=== PATIENT | female | born 1975 | race Caucasian/White ===

== ENCOUNTER 2023-07-01 01:20 | Inpatient (IN) | payer MEDICARE, MEDICAID, SELFPAY ==
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
--- NOTE | ~2023-07-01 | XR_ITS ---
EXAMINATION: XR SHOULDER, LEFT CLINICAL INFORMATION: Left shoulder trauma COMPARISON: None available. TECHNIQUE: AP external rotation, Grashey, scapular Y views of the left shoulder. FINDINGS: The bones are intact. No fracture. Glenohumeral and acromioclavicular alignment is anatomic with normal joint space. No abnormal soft tissue calcifications. XR/XR shoulder LT min 2V IMPRESSION: No acute bony abnormality.
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
--- NOTE | ~2023-07-01 | CT_ITS ---
EXAMINATION: CT head/brain wo IV con, CT cervical spine wo IV con INDICATION INFORMATION: Reason for Exam Head trauma COMPARISON: None TECHNIQUE: Separate noncontrast CT examinations of the head and cervical spine were performed. Coronal and sagittal images were created for each examination at the technologist workstation. This CT examination was performed using dose optimization techniques as appropriate, variously including the following: *Automated exposure control *Adjustment of mA and/or kV according to patient size (this includes techniques or standardized protocols for targeted exams where dose is matched to indication/reason for exam; i.e. extremities or head) *Use of iterative reconstruction technique DLP: 1398.6 mGy-cm FINDINGS: Head: No acute osseous or soft tissue abnormality. The mastoid air cells and visualized portions of the paranasal sinuses are well aerated. There is no evidence of acute intracranial hemorrhage or territorial infarction. No abnormal mass effect or midline shift is seen. Liz to white matter differentiation is well preserved. No extra-axial fluid collections are identified. No hydrocephalus. No significant volume loss. There is no abnormal attenuation within the brain parenchyma. Cervical spine: CT of the cervical spine is motion degraded which limits sensitivity for nondisplaced fractures. There is no evidence of acute cervical spine fracture. Vertebral bodies remain normal in height. Cervical straightening. No pre- or paravertebral soft tissue abnormality is identified. Visualized portions of the lung apices are unremarkable. The thyroid gland is unremarkable. CT/CT cervical spine wo IV con IMPRESSION: 1. No acute intracranial abnormality. 2. Within the limitations of motion artifact, no evidence of acute fracture or traumatic malalignment of the cervical spine.
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
--- OUTSIDE RECORDS SUMMARY | 2023-07-01 01:24 | XMS_ITS | Continuity of Care Document ---
Author Name Unknown Organization [facility] Address [address] [place] [id number]- Care Team Providers Care Mobile Home Servicer Name Role Phone PCP INFO, UNAVAILABLE Primary Care Physician Elenita vailable Encounter [facility] Date(s): 01/07/23 - 01/08/[address] [place] [address]- Encounter Diagnosis Fall(Discharge Diagnosis) - 01/08/23 Closed head injury(Discharge Diagnosis) - 01/08/23 Discharge Disposition: Home/Self Care Attending Physician: ANAND MARTINEZ Admitting Physician: ANAND MARTINEZ Referring Physician: ANAND MARTINEZ Allergies, Adverse Reactions, Alerts Substance Reaction Severity Status lithium SI Suicidal thoughts Active penicillin rash Rash Active gabapentin SI Suicidal thoughts Active sulfadoxine GI upset Gastrointestinal upset Active Latex rash Rash Active Tape rash Rash Active Haldol Suicidal thoughts Suicidal thoughts Active Effexor depression Depression Active Cipro SI Suicidal thoughts Active Depakote seizure Seizure Active Dilaudid chest pain Chest pain Active Wellbutrin seizure Seizure Active Chantix Seizure Seizure Active anabolic steroids SI Suicidal thoughts Active Rexulti SI Suicidal thoughts Active Medications atorvastatin 10 mg oral tablet 10 mg = 1 tab, Oral, Daily, # 90 tab, 0 Refill(s) Start Date: 01/06/23 Status: Ordered azelastine nasal 0.1% spray 1 spray, Nasal, BID, 0 Refill(s), Partial fill upon patient request if the prescription is for a schedule II opioid drug. Start Date: 01/06/23 Status: Ordered Breo Ellipta 100 mcg-25 mcg inhalation powder 1 puff, Inhalation Oral, Daily, 0 Refill(s), Partial fill upon patient request if the prescription is for a schedule II opioid drug. Start Date: 01/06/23 Status: Ordered busPIRone 5 mg oral tablet 5 mg = 1 tab, Oral, TID, # 90 tab, 0 Refill(s) Start Date: 01/06/23 Status: Ordered celecoxib 200 mg oral capsule 200 mg = 1 cap, Oral, BID, 0 Refill(s) Start Date: 01/06/23 Status: Ordered clonazePAM 1 mg oral tablet 1 mg = 1 tab, Oral, BID, 0 Refill(s) Start Date: 01/06/23 Status: Ordered ferrous gluconate 324 mg (37.5 mg elemental iron) oral tablet See Instructions, take one tab PO every other day, 0 Refill(s) Start Date: 01/06/23 Status: Ordered FLUoxetine 20 mg oral capsule 80 mg = 4 cap, Oral, Daily, 0 Refill(s) Start Date: 01/06/23 Status: Ordered hydrOXYzine hydrochloride 50 mg oral tablet 50 mg = 1 tab, Oral, TID, PRN PRN for anxiety, # 40 tab, 0 Refill(s) Start Date: 01/06/23 Status: Ordered hydrOXYzine pamoate 100 mg oral capsule See Instructions, PRN PRN Sleep, 1 cap PO at bedtime as needed for sleep, 0 Refill(s) Start Date: 01/06/23 Status: Ordered levothyroxine 75 mcg (0.075 mg) oral tablet 75 mcg = 1 tab, Oral, Daily, # 90 tab, 0 Refill(s) Start Date: 01/06/23 Status: Ordered OLANZapine 10 mg oral tablet 10 mg = 1 tab, Oral, BID, # 30 tab, 0 Refill(s) Start Date: 01/06/23 Status: Ordered pantoprazole 40 mg oral enteric coated tablet 40 mg = 1 tab, Oral, BID, # 30 tab, 0 Refill(s) Start Date: 01/06/23 Status: Ordered prazosin 5 mg oral capsule 5 mg = 1 cap, Oral, Daily, bedtime, 0 Refill(s) Start Date: 01/06/23 Status: Ordered topiramate 100 mg oral tablet 100 mg = 1 tab, Oral, BID, # 180 tab, 0 Refill(s) Start Date: 01/06/23 Status: Ordered traZODone 100 mg oral tablet 3 tabs, Oral, bedtime, 0 Refill(s) Start Date: 01/06/23 Status: Ordered Ubrelvy 100 mg oral tablet 100 mg = 1 tab, Daily, PRN PRN Migraine, 0 Refill(s) Start Date: 01/06/23 Status: Ordered Ventolin HFA 90 mcg/inh inhalation aerosol 2 puff, Inhalation Oral, Q6hr, PRN PRN for wheezing, 0 Refill(s), Partial fill upon patient requestif the prescription is for a schedule II opioid drug. Start Date: 01/06/23 Status: Ordered Problem List Condition Confirmation Course Effective Dates Status H ealth Status Informant Anemia Confirmed Active Asthma 1 Confirmed Active patient Bipolar Confirmed Active patient Falls Confirmed Active GERD (gastroesophageal reflux disease) Confirmed Active Hyperlipidemia Confirmed Active Hypothyroidism Confirmed Active Obesity Confirmed Active Post traumatic stress disorder Confirmed Active patient Traumatic brain injury Confirmed Active patient 1exercise induced Vital Signs Most recent to oldest [Reference Range]: 1 2 Blood Pressure [90-140/60-90 mmHg] 113/7 7mmHg (01/08/23 3:46 AM) 111/75mmHg (01/08/23 12:13 AM) Dosing BMI 43 (01/08/23 3:49 AM) 43 (01/08/23 12:13 AM) Dosing BSA-Mosteller 2.24 m2 (01/08/23 3:49 AM) 2.24 m2 (01/08/23 12:13 AM) Dosing Weight 112 kg (01/08/23 3:49 AM) 112 kg (01/08/23 12:13 AM) Heart Rate [60-100 bpm] 81 bpm (01/08/23 3:46 AM) 84 bpm (01/08/23 12:13 AM) Height 162 cm (01/08/23 3:49 AM) 162 cm (01/08/23 12:13 AM) Mean Arterial Pressure 87 mmHg (01/08/23 12:13 AM) Respiratory Rate [14-20 breaths/min] 18 breaths/min (01/08/23 3:46 AM) 18 breaths/min (01/08/23 12:13 AM) SpO2/Pulse Oximetry [85-100 %] 98 % (01/08/23 3:46 AM) 96 % (01/08/23 12:13 AM) Temperature Temporal [36.3-38 degC] 36.7 degC (01/08/23 12:13 AM) Social History Social History Type Response Smoking Status Former smoker entered on: 01/07/23 Sex Hospital Discharge Instructions Follow Up Care 01/07/2023 23:39:12 With:PCP INFO, UNAVAILABLE, Other Address: When:1-2 days Comments:You are seen in the emergency room today??after a fall and head injury.You can continue taking Tylenol as needed for pain.Please return to the emergency room for any new or worsening symptoms including confusion, persistent vomiting,??severe pain. Patient Care team information Care Team Personnel Name: PCP INFO, UNAVAILABLE Position: RO No Access Member Role: Primary Care Physician Name: Marzena Hernandez Position: ED Registration/Bed Control CPOE Member Role: ED Registration/Bed Control Name: Prisca Max RN Position: ED RN SPC R3 Member Role: ED Nurse Name: Shirley Sanford MD Position: ED Physician R3 Member Role: ED Physician Address: Address: [address] [place] [address] Name: ANAND MARTINEZ Position: ED MLP PA R3 Member Role: Attending Physician Address: Address: [address] [place] [address]
--- OUTSIDE RECORDS SUMMARY | 2023-07-01 01:24 | XMS_ITS | Patient Health Record ---
Author Name Unknown Organization [facility] Address [address] [place] [address] Care Team Providers Care Sheet Rock Finisher Name Role Phone Guido Acuna Primary Care Provider Allan Edge Unavailable [phone] ALLERGIES Allergen (clinical drug ingredient) Drug/Non Drug Allergy documented on EMR Reaction Allergy Type Onset Date Status amoxicillin Amoxicillin tabs (uncoded) hives Allergy Active hydromorphone Dilaudid (uncoded) chest pain Allergy Active gabapentin gabapentin caps (uncoded) suicidal ideation Allergy Active Substance with penicillin structure and antibacterial mechanism of action (substance) penicillins (uncoded) rash Allergy Active piroxicam piroxicam caps (uncoded) swelling Allergy Active Prednisone tabs (uncoded) Unknown Allergy Active lansoprazole prevacid cpdr (uncoded) GI upset Allergy Active carbamazepine Tegretol tabs (uncoded) rash Allergy Active oxcarbazepine Trileptal tabs (uncoded) Tremor Allergy Active bupropion wellbutrin sr tb12 (uncoded) seizures Allergy Active sertraline Zoloft (uncoded) GI upset Allergy Ac tive paliperidone Invega Unknown Drug Allergy Acti ve lamotrigine Lamictal Unknown Drug Allergy Activ e REASON FOR REFERRAL No Information MEDICATIONS Medication SIG (Take, Route, Frequency, Duration) Notes Start Date End Date Status Naproxen 500 MG 1 tablet with food o r milk as needed Orally every 12 hrs Active Colace 100 MG 1 capsule as needed Orally Once a day for 30 day(s) Active Omeprazole 40 MG 1 capsule Orally BID Active Prazosin HCl 5 MG 1 capsule at bedtime Orally Once a day for 30 day(s) Active Citalopram Hydrobromide 10 MG/5ML 5 ml Orally Once a day for 30 day(s) Active Levothyroxine Sodium 75 MCG 1 tablet on an empty stomach in the morning Orally Once a day Active clonazePAM 0.5 MG 1 tablet at bedtime Orally Three times a day Active Topiramate 200 MG 1 tablet Orally Twic e a day Active Abilify 15 MG 1 tablet Orally Once a day for 30 day(s) Active Citalopram Hydrobromide 20 MG 1 tablet Orally Once a day A ctive traZODone HCl 100 MG 2 tablet at bedtime Orally Once a day Active Propranolol HCl ER 80 MG 1 capsule Orall y Once a day for 30 day(s) Active ProAir HFA 108 (90 Base) MCG/ACT 2 puffs as needed Inhalation every 6 hrs Active ZyPREXA 10 MG 1 tablet Orally BID Active Advair Diskus 250-50 MCG/DOSE 1 puff Inhalation Twice a day Active RisperDAL Consta 50 MG Intramuscular Active ZyPREXA 15 MG 1 tablet Orally Once a day for 30 day(s) Active hydrOXYzine HCl 50 MG 1 tablet as needed Orally 4 times a day Active oxyBUTYnin Chloride ER 15 MG 1 tablet Orally Once a day A ctive Acetaminophen 325 MG 2 capsule as needed Orally every 6 hrs Active SOCIAL HISTORY Tobacco Use: Social History Observation Description Date Details (start date - stop date) Former Smoker NA - NA Sex Assigned At : Social History Observation Description Sex Assigned At Unknown Tobacco Use/Smoking Question Answer Notes Are you a former smoker Tobacco use other than smoking: Question Answer Notes Are you an other tobacco user? No PROBLEMS Problem Type ICD Code Onset Dates Problem Status W/U Status Risk SNOMED Code Notes Problem Seizure disorder (G40.909) Active confirmed Seizure disorde r (479228843) Problem Vertigo (R42) Active confirmed Vertigo (135075217) Problem Dizziness (R42) Active confirmed Dizzin ess (532773809) Problem Post concussive syndrome (F07.81) Active confirmed Postconcussion syndrome (06652566) Problem Bipolar disorder (F31.9) Active confirmed Bipolar disorde r (44783479) Problem Postural instability (R29.3) Active confirmed Abnormal postur e (18539645) Problem Bipolar 1 disorder (F31.9) Active confirmed Bipolar 1 disorder (928360651) Problem Borderline personality disorder in adult (F60.3) Active confirmed Borderline personality disorder (44770876) Problem Conversion disorder (F44.9) Active confirmed Conversion disorder (270565693) PLAN OF TREATMENT No Information Insurance Providers Payer Name Payer Address Payer Phone Subscriber Number Group Number Insured Name Patient Relationship to Insured Coverage Start Date Coverage End Date MEDICARE [address] [place], [place] [id number] [employer] Self - patient is the insured [employer] [address] [place] [address] [id number] [employer] Self - patient is the insured MEDICAL (GENERAL) HISTORY Medical History History ICD Code Vertigo Bipolar disorder Seizures (? Nonepileptic) BPD Surgical History Surgery Date(Month/Year) 2 hand surgeries Gal Bladder Tibal Ligation Hospitalization History Reason Date(Month/Year) Falls, vertigo 03/2017 [facility]
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
--- OUTSIDE RECORDS SUMMARY | 2023-07-01 01:25 | XMS_ITS | Continuity of Care Document ---
Author Name Unknown Organization [facility] Address [address] [place] [place] [id number]- Care Team Providers Care Product Management Specialist Name Role Phone PCP INFO, UNAVAILABLE Primary Care Physician Elenita vailable Encounter [facility] Date(s): 01/05/23 - 01/07/[address] [address]- Encounter Diagnosis Suicidal ideation(Discharge Diagnosis) - 01/07/23 Discharge Disposition: Xfer To Psych Unit - Other Hosp Attending Physician: ZULMA RIOS MD Admitting Physician: ZULMA RIOS MD Referring Physician: ZULMA RIOS MD Allergies, Adverse Reactions, Alerts Substance Reaction [...] List Condition Confirmation Course Effective Dates Status Health [facility] Informant Bipolar Confirmed Active patient Results Laboratory List Name Date Acetaminophen Level 01/05/23 Basic Metabolic Panel 01/05/23 Complete Blood Count With Auto Different ial 01/05/23 Ethanol Level 01/05/23 Salicylate Level 01/05/23 Amphetamine Screen Urine 01/05/23 Barbiturate Screen Urine 01/05/23 Benzodiazepine Screen Urine 01/05/23 Cannabinoid Screen Urine 01/05/23 Cocaine Screen Urine 01/05/23 Coronavirus SARS-CoV-2 (COVID-19) PCR Opiate Screen Urine 01/05/23 HCG Urine Qual POC 01/05/23 Most recent to oldest [Reference Range]: 1 COVID-19 PCR [Negative] Negative (01/05/23 7:12 PM) HCG By Nursing Negative (01/05/23 9:17 PM) eGFR CKD-EPI [>=90 mL/min/1.73m2] 61 mL/ min/1.73m2 *LOW* (01/05/23 8:59 PM) Imm Gran Abs 0 10^3/uL *NA* (01/05/23 8:59 PM) NRBC Auto Rel 0 % *NA* (01/05/23 8:59 PM) Imm Gran Rel 1 % *NA* (01/05/23 8:59 PM) RDW-SD 52 *NA* (01/05/23 8:59 PM) RDW-CV [12-14 %] 18 % *HI* (01/05/23 8:59 PM) NRBC Auto Abs 0.00 x10(3)/mcL *NA* (01/05/23 8:59 PM) Amph U Scrn Rslt [Negative] Negative (01/05/23 7:12 PM) AGAP [8.0-15.0] 7.0 *LOW* (01/05/23 8:59 PM) BUN/Creat [8-27] 15 (01/05/23 8:59 PM) Sodium Lvl [134-144 mEq/L] 137 mEq/L (01/05/23 8:59 PM) CO2 [20-32 mEq/L] 24 mEq/L (01/05/23 8:59 PM) Ethanol Lvl [0-9 mg/dL] <10 mg/dL (01/05/23 8:59 PM) Glucose Level [65-99 mg/dL] 97 mg/dL (01/05/23 8:59 PM) Potassium Lvl [3.6-5.6 mEq/L] 3.6 mEq/L (01/05/23 8:59 PM) BUN [5-26 mg/dL] 17 mg/dL (01/05/23 8:59 PM) Calcium Lvl [8.3-10.0 mg/dL] 9.1 mg/dL (01/05/23 8:59 PM) Benzo U Scrn Rslt [Negative] Negative (01/05/23 7:12 PM) Marcelle U Scrn Rslt [Negative] Negative (01/05/23 7:12 PM) Cocaine U Scrn Rslt [Negative] Negative (01/05/23 7:12 PM) Creatinine Lvl [0.50-1.50 mg/dL] 1.12 mg /dL (01/05/23 8:59 PM) Acetaminph Lvl [0-25 mcg/mL] <5 mcg/mL (01/05/23 8:59 PM) Chloride Lvl [96-109 mEq/L] 106 mEq/L (01/05/23 8:59 PM) Salicylate [2.8-20.0 mcg/mL] <0.3 mcg/mL *LOW* (01/05/23 8:59 PM) Opiate U Scrn Rslt [Negative] Negative (01/05/23 7:12 PM) THC U Scrn Rslt [Negative] Presumptive P ositive *ABN* (01/05/23 7:12 PM) Osmolality Calc [275-305 mmol/kg] 285 mm ol/kg (01/05/23 8:59 PM) WBC [3.9-11.0 x10(3)/mcL] 7.7 x10(3)/mcL (01/05/23 8:59 PM) RBC [3.70-5.10 million/mcL] 4.18 million /mcL (01/05/23 8:59 PM) Hgb [11.5-12.5 g/dL] 10.1 g/dL *LOW* (01/05/23 8:59 PM) Hct [34.0-44.0 %] 33.4 % *LOW* (01/05/23 8:59 PM) MCV [80-100 fL] 80 fL (01/05/23 8:59 PM) MPV [7.0-11.0 fL] 9.2 fL (01/05/23 8:59 PM) MCH [27-33 pg] 24 pg *LOW* (01/05/23 8:59 PM) MCHC [31-36 g/dL] 30 g/dL *LOW* (01/05/23 8:59 PM) RDW [11.4-14.4 %] 52.3 % *HI* (01/05/23 8:59 PM) Platelet Count [150-450 x10(3)/mcL] 206 x10(3)/mcL (01/05/23 8:59 PM) Neutrophil Rel [42-76 %] 58 % (01/05/23 8:59 PM) Lymphocyte Rel [27-47 %] 32 % (01/05/23 8:59 PM) Lymphocyte Abs [1.1-5.9 x10(3)/mcL] 2.5 x10(3)/mcL (01/05/23 8:59 PM) Neutrophil Abs [1.8-7.0 x10(3)/mcL] 4.5 x10(3)/mcL (01/05/23 8:59 PM) Monocyte Rel [4-13 %] 8 % (01/05/23 8:59 PM) Monocyte Abs [0.1-0.8 x10(3)/mcL] 0.6 x1 0(3)/mcL (01/05/23 8:59 PM) Eosinophil Rel [0-7 %] 2 % (01/05/23 8:59 PM) Eosinophil Abs [0.00-0.40 x10(3)/mcL] 0. 12 x10(3)/mcL (01/05/23 8:59 PM) Basophil Rel [0-3 %] 0 % (01/05/23 8:59 PM) Basophil Abs [0.00-0.20 x10(3)/mcL] 0.02 x10(3)/mcL (01/05/23 8:59 PM) Vital Signs Most recent to oldest [Reference Range]: 1 2 3 Blood Pressure [90-140/60-90 mmHg] 104/67mmHg (01/07/23 3:22 PM) 116/68mmHg (01/07/23 7:44 AM) 118/75mmHg (01/07/23 6:07 AM) Blood Pressure Location Left (01/07/23 3:22 PM) Right, Lower, Arm (01/05/23 5:03 PM) Blood Pressure Method Automatic (01/07/23 3:22 PM) Automatic (01/05/23 5:03 PM) Dosing BMI 276 (01/07/23 6:15 PM) 276 (01/05/23 5:03 PM) Dosing BSA-Mosteller 1.42 m2 (01/07/23 6:15 PM) 1.42 m2 (01/05/23 5:03 PM) Dosing Weight 113 kg (01/07/23 6:15 PM) 113 kg (01/05/23 5:03 PM) Heart Rate [60-100 bpm] 89 bpm (01/07/23 3:22 PM) 103 bpm *HI* (01/07/23 7:44 AM) 80 bpm (01/07/23 1:02 AM) Height 64 cm (01/07/23 6:15 PM) 64 cm (01/05/23 5:03 PM) Mean Arterial Pressure 79 mmHg (01/07/23 3:22 PM) 84 mmHg (01/07/23 7:44 AM) 89 mmHg (01/07/23 6:07 AM) Pulse/HR Method Monitor (01/07/23 3:22 PM) Monitor (01/05/23 5:03 PM) Respiratory Rate [14-20 breaths/min] 18 breaths/min (01/07/23 3:22 PM) 21 breaths/min *HI* (01/07/23 7:44 AM) 20 breaths/min (01/07/23 1:02 AM) SpO2/Pulse Oximetry [85-100 %] 96 % (01/07/23 3:22 PM) 99 % (01/07/23 7:44 AM) 100 % (01/07/23 6:07 AM) Temperature Oral [35.8-37.3 degC] 36.4 degC (01/07/23 3:22 PM) 36.6 degC (01/07/23 7:44 AM) 36.1 degC (01/07/23 1:02 AM) Vital Signs Assessed No (01/05/23 8:58 PM) Social History Social History Type Response Smoking Status Former smoker entered on: 01/07/23 Sex Patient Care team information Care Team Personnel Name: PCP INFO, UNAVAILABLE Position: RO No Access Member Role: Primary Care Physician Name: Guido Aguilar MD Position: ED Physician R3 Member Role: ED Physician Address: Address: [address] [place] [address]- Name: Ashley Villegas CLA Position: ED Registration/Bed Control CPOE Name: Saritha Curtis RN Position: ED RN SPC R3 Member Role: ED Nurse Name: Jeff Keller MD Position: ED Physician R3 Member Role: ED Physician Address: Address: [address] [place] [address]- Name: SHELBY MILNER Position: ED RN SPC R3 Member Role: ED Nurse
--- OUTSIDE RECORDS SUMMARY | 2023-07-01 01:25 | XMS_ITS | Summary of Care ---
Author Name Unknown Organization [facility] Address [address] [place] [address]- Encounter 03/15/18 - 03/20/18 [facility] [address] [place] [address]- [phone] Discharge Disposition: Against medical advice, with follow-up Attending Physician: Anny Rosas MD Vital Signs Most recent to oldest [Reference Range]: 1 2 3 Temperature Oral F [96.4-99.1 DegF] 97.5 DegF (03/20/18 4:49 AM) 98.3 DegF (03/19/18 7:27 PM) 98.1 DegF (03/19/18 1:50 PM) Peripheral Pulse Rate [60-100 bpm] 70 bpm (03/20/18 3:07 PM) 70 bpm (03/20/18 4:49 AM) 68 bpm (03/19/18 7:27 PM) Respiratory Rate [14-20 br/min] 18 br/min (03/20/18 3:07 PM) 18 br/min (03/20/18 4:49 AM) 16 br/min (03/19/18 7:27 PM) Blood Pressure [90-140/60-90 mmHg] 120/82mmHg (03/19/18 7:27 PM) Systolic Blood Pressure [90-140 mmHg] 112 mmHg (03/20/18 3:07 PM) 112 mmHg (03/20/18 4:49 AM) Diastolic Blood Pressure [60-90 mmHg] 72 mmHg (03/20/18 3:07 PM) 72 mmHg (03/20/18 4:49 AM) Temperature Oral [35.8-37.3 DegC] 36.4 DegC (03/20/18 4:49 AM) 36.7 DegC (03/19/18 1:50 PM) 36.9 DegC (03/19/18 6:26 AM) Problem List Condition Effective Dates Status Health Status Inform ant ADD - Attention deficit disorder(Confirmed) Active Anxiety(Confirmed) Active Balance impairment(Confirmed) Active Bipolar disorder(Confirmed) Active Chronic constipation(Confirmed) Active COPD - Chronic obstructive p ulmonary disease(Confirmed) Active Gait abnormality(Confirmed) Active GERD - Gastro-esophageal ref lux disease(Confirmed) Active HTN - Hypertension(Confirmed) Active Hyperlipidemia(Confirmed) Active Impaired mobility(Confirmed) Active Migraine(Confirmed) Active Non cardiac chest pain(Confirmed) Active Pancreatitis(Confirmed) Active Suicide risk(Confirmed) Active urinary urgency(Confirmed) Active Vertigo(Confirmed) Active Allergies, Adverse Reactions, Alerts Substance Reaction Severity Status Toradol per nurse Active ciprofloxacin Active meperidine Active tetracycline Active clindamycin Active erythromycin Active morphine Active piroxicam Active sertraline Active venlafaxine Active penicillins Active sulfamethoxazole-trimethoprim SS Active buPROPion Active predniSONE Active pregabalin Active varenicline Active Compazine Active Invega Active Chantix Active cloZAPine Active OXcarbazepine Active HYDROcodone Active carBAMazepine Active HYDROmorphone Hydrochloride Active Medications Advair Diskus 250 mcg-50 mcg inhalation powder 1 puff, Powder, INH, BID RT, 60 EA, 0 Refill(s) Start Date: 03/15/18 Status: Ordered albuterol CFC free 90 mcg/inh inhalation aerosol 0 Refill(s) Start Date: 03/16/18 Status: Ordered albuterol CFC free 90 mcg/inh inhalation aerosol 2 puff, Aerosol, INH, q4hr RT PRN, 0 Refill(s), wheezing Start Date: 03/15/18 Status: Ordered CeleXA 20 mg oral tablet 20 mg = 1 tab, Tab, Oral, Daily, 30 tab, 0 Refill(s) Start Date: 03/15/18 Status: Ordered Colace 100 mg oral capsule 100 mg, Cap, Oral, BID, 0 Refill(s) Start Date: 03/16/18 Status: Ordered Fioricet 0 Refill(s) Start Date: 03/16/18 Status: Ordered Flonase 50 mcg/inh nasal spray 1 spray, [place]-Nasal, Nasal, Daily, 16 gm, 0 Refill(s) Start Date: 03/15/18 Status: Ordered Imitrex 50 mg oral tablet 50 mg = 1 tab, Tab, Oral, Daily PRN, 18 tab, 0 Refill(s), may repeat dose after 2 hours up to a maximum of 200 mg in 24 hours, Headache Start Date: 03/15/18 Status: Ordered KlonoPIN 0.5 mg oral tablet 0.5 mg = 1 tab, Tab, Oral, BID, 0 Refill(s) Start Date: 03/15/18 Status: Ordered melatonin 3 mg oral tablet 3 mg = 1 tab, Tab, Oral, QHS, 60 tab, 0 Refill(s) Start Date: 03/15/18 Status: Ordered naproxen 500 mg oral tablet 500 mg = 1 tab, Tab, Oral, BID, 60 tab, 0 Refill(s) Start Date: 03/15/18 Status: Ordered OLANZapine 5 mg oral tablet 5 mg = 1 tab, Tab, Oral, QHS, 30 tab, 0 Refill(s) Start Date: 03/15/18 Status: Ordered oxybutynin 15 mg/24 hr oral tablet, extended release 15 mg, 1 tab, Oral, Daily, 0 Refill(s) Start Date: 03/15/18 Status: Ordered PriLOSEC OTC 20 mg oral delayed release tablet 40 mg = 2 tab, Tab-DR, Oral, BIDAC, 60 tab, 0 Refill(s) Start Date: 03/15/18 Status: Ordered QUEtiapine 200 mg oral tablet, extended release 200 mg, 1 tab, Tab-ER, Oral, qPM, 30 tab, 0 Refill(s) Start Date: 03/15/18 Status: Ordered risperiDONE 4 mg oral tablet 4 mg = 1 tab, Tab, Oral, QHS, 60 tab, 0 Refill(s) Start Date: 03/15/18 Status: Ordered risperiDONE 50 mg/2 weeks intramuscular injection, extended release 50 mg, IM, q2wk, 0 Refill(s) Start Date: 03/15/18 Status: Ordered Synthroid 75 mcg (0.075 mg) oral tablet 75 mcg = 1 tab, Tab, Oral, Daily, 30 tab, 0 Refill(s) Start Date: 03/15/18 Status: Ordered topiramate 100 mg oral tablet 100 mg = 1 tab, Tab, Oral, Daily, 30 tab, 0 Refill(s) Start Date: 03/15/18 Status: Ordered Zofran 4 mg oral tablet 4 mg = 1 tab, Tab, Oral, q8hr PRN, 3 tab, 0 Refill(s), Nausea or vomiting Start Date: 03/15/18 Status: Ordered Results LABORATORY Most recent to oldest [Reference Range]: 1 2 3 White Blood Cell Count - QST [3.8-10.8 x10(3)/mcL] 6.1 x10(3)/mcL *NA* (03/16/18 6:00 AM) Red Blood Cell Count - QST [3.80-5.10 x10(6)/mcL] 4.39 x10(6)/mcL *NA* (03/16/18 6:00 AM) Hemoglobin - QST [11.7-15.5 g/dL] 11.2 g/dL *LOW* (03/16/18 6:00 AM) Hematocrit - QST [35.0-45.0 %] 35.7 % *NA* (03/16/18 6:00 AM) MCV - QST [80.0-100.0 fL] 81.3 fL *NA* (03/16/18 6:00 AM) MCH - QST [27.0-33.0 pg] 25.5 pg *LOW* (03/16/18 6:00 AM) MCHC - QST [32.0-36.0 g/dL] 31.4 g/dL *LOW* (03/16/18 6:00 AM) RDW - QST [11.0-15.0 %] 14.3 % *NA* (03/16/18 6:00 AM) Platelet Count - QST [140-40 0 x10(3)/mcL] 216 x10(3)/mcL *NA* (03/16/18 6:00 AM) MPV - QST [7.5-12.5 fL] 11.1 fL *NA* (03/16/18 6:00 AM) Absolute Neutrophils - QST [3917-0582 cells/mcL] 3630 cells/mcL *NA* (03/16/18 6:00 AM) Absolute Lymphocytes - QST [850-3900 cells/mcL] 1690 cells/mcL *NA* (03/16/18 6:00 AM) Absolute Monocytes - QST [200-950 cells/mcL] 519 cells/mcL *NA* (03/16/18 6:00 AM) Absolute Eosinophils - QST [15-500 cells/mcL] 220 cells/mcL *NA* (03/16/18 6:00 AM) Absolute Basophils - QST [0-200 cells/mcL] 43 cells/mcL *NA* (03/16/18 6:00 AM) Neutrophils - QST 59.5 % *NA* (03/16/18 6:00 AM) Monocytes - QST 8.5 % *NA* (03/16/18 6:00 AM) Eosinophils - QST 3.6 % *NA* (03/16/18 6:00 AM) Basophils - QST 0.7 % 1 *NA* (03/16/18 6:00 AM) Lymphocytes - QST 27.7 % *NA* (03/16/18 6:00 AM) Estimated Creatinine Clearance 68.54 mL/min (03/17/18 3:30 PM) 68.54 mL/min (03/17/18 3:17 PM) 69.24 mL/min (03/16/18 12:16 PM) Creatinine Level 0.93 mg/dL (03/16/18 6:00 AM) Sodium - QST [135-146 mmol/L] 140 mmol/L *NA* (03/16/18 6:00 AM) Potassium - QST [3.5-5.3 mmol/L] 4.2 mmol/L *NA* (03/16/18 6:00 AM) Chloride - QST [98-110 mmol/L] 108 mmol/L *NA* (03/16/18 6:00 AM) Carbon Dioxide - QST [20-32 mmol/L] 22 mmol/L *NA* (03/16/18 6:00 AM) Urea Nitrogen (BUN) - QST [7-25 mg/dL] 20 mg/dL *NA* (03/16/18 6:00 AM) BUN/Creatinine Ratio - QST [6-22] NOT APPLICABLE *NA* (03/16/18 6:00 AM) Creatinine - QST [0.50-1.10 mg/dL] 0.93 mg/dL *NA* (03/16/18 6:00 AM) eGFR Non-Afr. French - QST [> OR = 60 mL/min/1.73 m2] 76 mL/min/1.73 m2 *NA* (03/16/18 6:00 AM) eGFR - QST [> OR = 60 mL/min/1.73 m2] 88 mL/min/1.73 m2 *NA* (03/16/18 6:00 AM) Glucose - QST [65-99 mg/dL] 109 mg/dL 2 *HI* (03/16/18 6:00 AM) Calcium - QST [8.6-10.2 mg/dL] 9.0 mg/dL 3 *NA* (03/16/18 6:00 AM) Prealbumin - QST [17-34 mg/dL] 23 mg/dL 4 *NA* (03/16/18 6:00 AM) Albumin - QST [3.6-5.1 g/dL] 3.7 g/dL 5 *NA* (03/16/18 6:00 AM) 1Result Comment: Lab test performed by: Lab Mnemonic: [employer] [address],[facility] [place] [address] FATIMAH WERNER MD 2Result Comment: Fasting reference interval For someone without known diabetes, a glucose value between 100 and 125 mg/dL is consistent with prediabetes and should be confirmed with a follow-up test. 3Result Comment: Lab test performed by: Lab Mnemonic: [employer] [facility] [address],[facility] [place] [address] FATIMAH WERNER MD 4Result Comment: Lab test performed by: Lab Mnemonic: [employer] [facility] [address],[facility] [place] [address] FATIMAH WERNER MD 5Result Comment: Lab test performed by: Lab 410 Labsemon[facility]: [employer] [address],[facility] [place] [address] FATIMAH WERNER MD
--- OUTSIDE RECORDS SUMMARY | 2023-07-01 01:25 | XMS_ITS | Summary of Care ---
Author Name Unknown Organization [facility] Address [address] [place] [address]- Encounter 03/26/17 - 04/04/17 [facility] [address] [place] [address]- [phone] Discharge Diagnosis: Subjective complaints of dizziness and vertigo, likely not a central in origin Discharge Diagnosis: Chronic anxiety and depression Discharge Diagnosis: Hypothyroidism Discharge Diagnosis: Obesity Discharge Diagnosis: Right knee instability Discharge Diagnosis: Chronic bipolar disorder Attending Physician: Marci Valdovinos MD Vital Signs Most recent to oldest [Reference Range]: 1 2 3 Temperature Oral F [96.4-99.1 DegF] 98.1 DegF (04/04/17 4:58 AM) 97.7 DegF (04/03/17 9:25 PM) 98.2 DegF (04/03/17 5:25 AM) Peripheral Pulse Rate [60-100 bpm] 95 bpm (04/04/17 4:58 AM) 76 bpm (04/03/17 9:25 PM) 86 bpm (04/03/17 7:31 AM) Respiratory Rate [14-20 br/min] 18 br/min (04/04/17 4:58 AM) 18 br/min (04/03/17 9:25 PM) 18 br/min (04/03/17 7:31 AM) Blood Pressure [90-140/60-90 mmHg] 115/79mmHg (04/04/17 4:58 AM) 111/78mmHg (04/03/17 5:25 AM) Systolic Blood Pressure [90-140 mmHg] 106 mmHg (04/03/17 9:25 PM) Diastolic Blood Pressure [60-90 mmHg] 72 mmHg (04/03/17 9:25 PM) Mean Arterial Pressure, Cuff 87 mmHg (03/31/17 5:23 AM) 82 mmHg (03/30/17 2:39 PM) 84 mmHg (03/30/17 6:34 AM) Extremity used to obtain blood pressure Left Arm (03/30/17 9:15 AM) Left Arm (03/26/17 8:48 PM) Cuff Size. Large (03/30/17 9:15 AM) Large (03/26/17 8:48 PM) Vital Signs Additional Information patient reports dizziness and lightheadedness during transfers and gait training. Vitals are WNL. (04/01/17 8:00 AM) Temperature Oral [35.8-37.3 DegC] 36.7 DegC (04/04/17 4:58 AM) 36.5 DegC (04/03/17 9:25 PM) 36.4 DegC (04/02/17 1:42 PM) Problem List Condition Effective Dates Status Health Status Inform ant ADD - Attention deficit disorder(Confirmed) Active Anxiety(Confirmed) Active Balance impairment(Confirmed) Active Bipolar disorder(Confirmed) Active Chronic constipation(Confirmed) Active COPD - Chronic obstructive p ulmonary disease(Confirmed) Active Gait abnormality(Confirmed) Active GERD - Gastro-esophageal ref lux disease(Confirmed) Active HTN - Hypertension(Confirmed) Active Hyperlipidemia(Confirmed) Active Impaired mobility(Confirmed) Active Non cardiac chest pain(Confirmed) Active Pancreatitis(Confirmed) Active Suicide risk(Confirmed) Active urinary urgency(Confirmed) Active Vertigo(Confirmed) Active Allergies, Adverse Reactions, Alerts Substance Reaction Severity Status Toradol per nurse Active ciprofloxacin Active meperidine Active clindamycin Active morphine Active penicillins Active buPROPion Active varenicline Active cloZAPine Active OXcarbazepine Active carBAMazepine Active HYDROmorphone Hydrochloride Active Medications acetaminophen 325 mg oral tablet 650 mg = 2 tab, Tab, Oral, q4hr PRN, 0 Refill(s), Mild pain Start Date: 04/03/17 Status: Ordered albuterol 2.5 mg/3 mL (0.083%) inhalation solution 2.5 mg, 3 mL, Soln-Inh, NEB, q4hr RT PRN, 0 Refill(s), wheezing Start Date: 04/03/17 Status: Ordered benztropine 1 mg oral tablet 1 mg = 1 tab, Tab, Oral, QHS, 0 Refill(s) Start Date: 04/03/17 Status: Ordered Breo Ellipta 100 mcg-25 mcg inhalation powder 1 puff, Powder, INH, Daily RT, 0 Refill(s) Start Date: 04/03/17 Status: Ordered citalopram 20 mg oral tablet 40 mg = 2 tab, Tab, Oral, QHS, 0 Refill(s) Start Date: 04/03/17 Status: Ordered clonazePAM 0.5 mg oral tablet 0.5 mg = 1 tab, Tab, Oral, TID, 0 Refill(s) Start Date: 04/03/17 Status: Ordered clonazePAM 1 mg oral tablet 1 mg = 1 tab, Tab, Oral, Daily PRN, 0 Refill(s), Anxiety Start Date: 04/03/17 Status: Ordered Colace 100 mg oral capsule 100 mg = 1 cap, Cap, Oral, BID, 0 Refill(s) Start Date: 04/03/17 Status: Ordered cyclobenzaprine 10 mg oral tablet 10 mg = 1 tab, Tab, Oral, QHS, 0 Refill(s) Start Date: 04/03/17 Status: Ordered levothyroxine 75 mcg (0.075 mg) oral tablet 75 mcg = 1 tab, Tab, Oral, Daily, 0 Refill(s) Start Date: 04/03/17 Status: Ordered meclizine 12.5 mg oral tablet 25 mg = 2 tab, Tab, Oral, TID PRN, 0 Refill(s), Dizziness Start Date: 04/03/17 Status: Ordered melatonin 3 mg oral tablet 3 mg = 1 tab, Tab, Oral, QHS PRN, 0 Refill(s), Insomnia Start Date: 04/03/17 Status: Ordered MiraLax 17 gm = 1 EA, Powder, Oral, Daily, 0 Refill(s) Start Date: 04/03/17 Status: Ordered naproxen 250 mg oral tablet 500 mg = 2 tab, Tab, Oral, BID PRN, 0 Refill(s), Pain Start Date: 04/03/17 Status: Ordered oxybutynin 5 mg/24 hours oral tablet, extended release 15 mg, 3 tab, Tab-ER, Oral, Daily, 0 Refill(s) Start Date: 04/03/17 Status: Ordered pantoprazole 20 mg oral delayed release tablet 20 mg = 1 tab, Tab-DR, Oral, BIDAC, 0 Refill(s) Start Date: 04/03/17 Status: Ordered senna 8.6 mg oral tablet 17.2 mg = 2 tab, Tab, Oral, QHS, 0 Refill(s) Start Date: 04/03/17 Status: Ordered Topamax 100 mg oral tablet 200 mg = 2 tab, Tab, Oral, QHS, 0 Refill(s) Start Date: 04/03/17 Status: Ordered traMADol 50 mg oral tablet 25 mg = 0.5 tab, Tab, Oral, q4hr PRN, 30 tab, 0 Refill(s), Dispense: 7 day, Pain, Stop date 04/10/17 16:00:00 EDT, Print Requisition Start Date: 04/03/17 Stop Date: 04/10/17 Status: Ordered traZODone 100 mg oral tablet 200 mg = 2 tab, Tab, Oral, QHS, 0 Refill(s) Start Date: 04/03/17 Status: Ordered Results LABORATORY Most recent to oldest [Reference Range]: 1 2 3 White Blood Cell Count - QST [3.8-10.8 x10(3)/mcL] 5.8 x10(3)/mcL *NA* (04/03/17 6:00 AM) 5.1 x10(3)/mcL *NA* (03/31/17 6:00 AM) Red Blood Cell Count - QST [3.80-5.10 x10(6)/mcL] 4.57 x10(6)/mcL *NA* (04/03/17 6:00 AM) 4.44 x10(6)/mcL *NA* (03/31/17 6:00 AM) Hemoglobin - QST [11.7-15.5 g/dL] 12.5 g/dL *NA* (04/03/17 6:00 AM) 12.0 g/dL *NA* (03/31/17 6:00 AM) Hematocrit - QST [35.0-45.0 %] 37.4 % *NA* (04/03/17 6:00 AM) 36.5 % *NA* (03/31/17 6:00 AM) MCV - QST [80.0-100.0 fL] 81.8 fL *NA* (04/03/17 6:00 AM) 82.2 fL *NA* (03/31/17 6:00 AM) MCH - QST [27.0-33.0 pg] 27.4 pg *NA* (04/03/17 6:00 AM) 27.0 pg *NA* (03/31/17 6:00 AM) MCHC - QST [32.0-36.0 g/dL] 33.5 g/dL *NA* (04/03/17 6:00 AM) 32.9 g/dL *NA* (03/31/17 6:00 AM) RDW - QST [11.0-15.0 %] 14.4 % *NA* (04/03/17 6:00 AM) 14.2 % *NA* (03/31/17 6:00 AM) Platelet Count - QST [140-400 x10(3)/mcL] 201 x10(3)/mcL *NA* (04/03/17 6:00 AM) 197 x10(3)/mcL *NA* (03/31/17 6:00 AM) MPV - QST [7.5-12.5 fL] 8.9 fL *NA* (04/03/17 6:00 AM) 9.1 fL *NA* (03/31/17 6:00 AM) Absolute Neutrophils - QST [8704-0230 cells/mcL] 3521 cells/mcL *NA* (04/03/17 6:00 AM) 3172 cells/mcL *NA* (03/31/17 6:00 AM) Absolute Lymphocytes - QST [850-3900 cells/mcL] 1676 cells/mcL *NA* (04/03/17 6:00 AM) 1413 cells/mcL *NA* (03/31/17 6:00 AM) Absolute Monocytes - QST [200-950 cells/mcL] 447 cells/mcL *NA* (04/03/17 6:00 AM) 362 cells/mcL *NA* (03/31/17 6:00 AM) Absolute Eosinophils - QST [15-500 cells/mcL] 116 cells/mcL *NA* (04/03/17 6:00 AM) 122 cells/mcL *NA* (03/31/17 6:00 AM) Absolute Basophils - QST [0-200 cells/mcL] 41 cells/mcL *NA* (04/03/17 6:00 AM) 31 cells/mcL *NA* (03/31/17 6:00 AM) Neutrophils - QST 60.7 % *NA* (04/03/17 6:00 AM) 62.2 % *NA* (03/31/17 6:00 AM) Monocytes - QST 7.7 % *NA* (04/03/17 6:00 AM) 7.1 % *NA* (03/31/17 6:00 AM) Eosinophils - QST 2.0 % *NA* (04/03/17 6:00 AM) 2.4 % *NA* (03/31/17 6:00 AM) Basophils - QST 0.7 % 1 *NA* (04/03/17 6:00 AM) 0.6 % 2 *NA* (03/31/17 6:00 AM) Lymphocytes - QST 28.9 % *NA* (04/03/17 6:00 AM) 27.7 % *NA* (03/31/17 6:00 AM) Estimated Creatinine Clearance 59.08 mL/min (04/03/17 12:56 PM) 65.71 mL/min (04/03/17 5:48 AM) 65.71 mL/min (03/31/17 1:18 PM) Creatinine Level 1.09 mg/dL (04/03/17 6:00 AM) 0.98 mg/dL (03/31/17 6:00 AM) 0.95 mg/dL (03/26/17 6:49 PM) Sodium - QST [135-146 mmol/L] 138 mmol/L *NA* (04/03/17 6:00 AM) 140 mmol/L *NA* (03/31/17 6:00 AM) Potassium - QST [3.5-5.3 mmol/L] 4.0 mmol/L *NA* (04/03/17 6:00 AM) 4.3 mmol/L *NA* (03/31/17 6:00 AM) Chloride - QST [98-110 mmol/L] 103 mmol/L *NA* (04/03/17 6:00 AM) 106 mmol/L *NA* (03/31/17 6:00 AM) Carbon Dioxide - QST [20-31 mmol/L] 24 mmol/L *NA* (04/03/17 6:00 AM) 26 mmol/L *NA* (03/31/17 6:00 AM) Urea Nitrogen (BUN) - QST [7-25 mg/dL] 22 mg/dL *NA* (04/03/17 6:00 AM) 20 mg/dL *NA* (03/31/17 6:00 AM) BUN/Creatinine Ratio - QST [6-22] NOT APPLICABLE *NA* (04/03/17 6:00 AM) NOT APPLICABLE *NA* (03/31/17 6:00 AM) Creatinine - QST [0.50-1.10 mg/dL] 1.09 mg/dL *NA* (04/03/17 6:00 AM) 0.98 mg/dL *NA* (03/31/17 6:00 AM) eGFR Non-Afr. [place] - QST [> OR = 60 mL/min/1.73 m2] 63 mL/min/1.73 m2 *NA* (04/03/17 6:00 AM) 72 mL/min/1.73 m2 *NA* (03/31/17 6:00 AM) eGFR - QST [> OR = 60 mL/min/1.73 m2] 73 mL/min/1.73 m2 *NA* (04/03/17 6:00 AM) 83 mL/min/1.73 m2 *NA* (03/31/17 6:00 AM) Glucose - QST [65-99 mg/dL] 89 mg/dL 3 *NA* (04/03/17 6:00 AM) 93 mg/dL 4 *NA* (03/31/17 6:00 AM) Calcium - QST [8.6-10.2 mg/dL] 9.6 mg/dL 5 *NA* (04/03/17 6:00 AM) 9.2 mg/dL 6 *NA* (03/31/17 6:00 AM) Alkaline Phosphatase - QST [33-115 U/L] 141 U/L *HI* (03/31/17 6:00 AM) ALT - QST [6-29 U/L] 175 U/L 7 *HI* (03/31/17 6:00 AM) AST - QST [10-30 U/L] 67 U/L *HI* (03/31/17 6:00 AM) Bilirubin, Direct - QST [< OR = 0.2 mg/dL] 0.0 mg/dL *NA* (03/31/17 6:00 AM) Bilirubin, Indirect - QST [0.2-1.2 mg/dL (calc)] 0.3 mg/dL (calc) *NA* (03/31/17 6:00 AM) Bilirubin, Total - QST [0.2-1.2 mg/dL] 0.3 mg/dL *NA* (03/31/17 6:00 AM) Protein, Total - QST [6.1-8.1 g/dL] 6.6 g/dL *NA* (03/31/17 6:00 AM) Prealbumin - QST [17-34 mg/dL] 22 mg/dL 8 *NA* (03/31/17 6:00 AM) Albumin - QST [3.6-5.1 g/dL] 3.9 g/dL *NA* (03/31/17 6:00 AM) Globulin - QST [1.9-3.7 g/dL (calc)] 2.7 g/dL (calc) *NA* (03/31/17 6:00 AM) Albumin/Globulin Ratio - QST [1.0-2.5 (calculated)] 1.4 (calculated) *NA* (03/31/17 6:00 AM) TSH w/Reflex To FT4 - QST 2.94 mIUnits/L 9 *NA* (03/31/17 6:00 AM) 1Result Comment: Lab test performed by: Lab Mnemonic: [facility] [address],[place] [address] FATIMAH WERNER MD 2Result Comment: Lab test performed by: Lab Mnemonic: [facility] [address],[facility] [place] [address] FATIMAH WERNER MD 3Result Comment: Fasting reference interval 4Result Comment: Fasting reference interval 5Result Comment: Lab test performed by: Lab Mnemonic: [facility] [address] [address] FATIMAH WERNER MD 6Result Comment: Lab test performed by: Lab Mnemonic: [facility] [address],[place] [address] FATIMAH WERNER MD 7Result Comment: Lab test performed by: Lab Mnemonic: [facility] [address],[place] [address] FATIMAH WERNER MD 8Result Comment: Lab test performed by: Lab Mnemonic: [facility] [address],[place] [address] FATIMAH WERNER MD 9Result Comment: Reference Range > or = 20 Years 0.40-4.50 Ranges First trimester 0.26-2.66 Second trimester 0.55-2.73 Third trimester 0.43-2.91 Lab test performed by: Lab Mnemonic: [facility] [address] [address] FATIMAH WERNER MD
[2023-07-01 01:30] VITALS: BP 126/64; PULSE 81; RESP 18; TEMP 36.4; O2SAT 95
[2023-07-01] MEDS: traZODone HCL 50 MG TABLET PO (02:14)
[2023-07-01] MEDS: Acetaminophen 325 MG TABLET 650 MG PO (02:14)
[2023-07-01] MEDS: hydrOXYzine HCL 25 MG TABLET PO ×2 (02:14→09:32)
[2023-07-01 02:49] VITALS: BMI 40.8
--- NOTE | 2023-07-01 03:29 | PC.ADMIT ---
Patient is a 48 year old female admitted to [facility] from [facility] on 07/01/22 at 0130 on a CV for SI, and SIB. Patient reports feeling uncertain if she would be able to be safe at home, cut her right wrist with intent to hurt/kill herself. She required two stitches. Patient reports she has been struggling the last two months with rapid mood changes and depression. Reports past suicide attempts including overdosing (uncertain of time frame), and other inpatient hospitalizations in the past. Patient arrived on unit at 0130. She was cooperative during admission process. JAY signed for and providers. She endorses anxiety and depression. Endorses SI, still feels as though she wants to hurt herself. Patient advanced to 5 minutes checks. Denies HI. Endorses AH/VH/CAH, she is seeing and hearing her uncle (who has passed), and he is telling her to hurt herself, and won?t stop until she does. Safety tool completed. Patient accepted PRN medication, and is resting quietly in room.
[2023-07-01 08:46] VITALS: BP 105/70; PULSE 86; RESP 16; TEMP 36.2; O2SAT 93
[2023-07-01] MEDS: clonazePAM 1 MG TABLET PO ×3 (09:50→20:14)
[2023-07-01] MEDS: Topiramate 100 MG TABLET PO ×2 (09:51→20:14)
[2023-07-01] MEDS: OLANZapine ODT 10 MG TAB.RAPDIS 20 MG TRANSLINGU ×2 (09:51→20:14)
[2023-07-01] MEDS: Nicotine 21 MG PATCH.TD24 TRANSDERMA (11:40)
[2023-07-01] MEDS: FLUoxetine HCl 20 MG CAPSULE 40 MG PO (11:42)
[2023-07-01] MEDS: Celecoxib 200 MG CAPSULE PO ×2 (11:42→20:14)
[2023-07-01] MEDS: Omeprazole 40 MG CAPSULE.DR PO ×2 (11:43→17:43)
[2023-07-01] MEDS: metFORMIN HCl 500 MG TABLET PO (11:43)
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
--- NOTE | 2023-07-01 16:36 | P.HPPS_ITS ---
HPI Date of Service: 07/01/23 Chief Complaint: Bipolar Disoder Unspecified Sources of Information: patient interviewed, chart reviewed and crisis/core team assessment reviewed HPI Subjective Notes: Antonio Warning and 3 Day Healthcare Proxy: No Guardianship: No Medical Problems Affecting Mental Status: No Narrative: 48 yo female, history of PTSD, Major Depression, ? Bipolar Disorder, Borderline Personality Disorder, sent in transfer from [facility]. Pt with cuts to R wrist with 2 sutures and nerve involvement. Reports rapid mood changes, lability for the past 1.5 months. Precipitants include holidays, needing to get a harassment order for a neighbor and argument with her ,however, overall unclear why symptoms are occurring. Positive SI. Pt discharged home after cutting/sutures, but feeling unsafe so she returned for further eval. Reports recent OP, CCS have not helped her. Pt started the day with intense SI, wrapping a pillow case around her neck to strangle herself which team removed with force, One to one initiated. Topamax, Zyprexa and Klonopin give voluntarily. Pt calmed and rested after these were given. Past Psychiatric History: IP: [facility] 06/25- [facility] 06/16-06/18/23 [facility] 05/31 [facility] 01/2023-03/14/23 [place] 02/2023 Section [facility] x 8 01/23-03/03 [facility] 01/31-02/02 [facility] transfer to [facility] OP: Saritha Gonzalez-therapist [phone] option 2 Fabiola Campos-med provider [phone] Acuna [phone] [facility] Medical Evaluation Reviewed: Yes [facility] Medical History (Updated 07/01/23 @ 17:53 by Cynthia Dill, [employer]EW[employer]) PTSD (post-traumatic stress disorder) Bipolar disorder Narrative: Fibromyalgia, Asthma, Bulging Disc L4-5 GERD, Hypothyroidism, Occipital Neuralgia Vertigo Pseudoseizures Family History: Affirms Social History: Lives with in [place]. They have a cat Father lives in [place] Sister lives in [place] Substance History: nicotine Trauma History: affirms Diagnostics Vital Signs (24Hr): Vital Signs - 24 hr 07/01/23 01:30 07/01/23 08:46 Temperature 97.6 F 97.2 F Pulse Rate 81 86 Respiratory Rate 18 16 Blood Pressure 126/64 105/70 Pulse Oximetry 95 93 Oxygen Delivery Method Room Air Room Air BMI result Body Mass Index 40.8 Labs 07/02/23 08:32 07/02/23 08:32 Meds/Allergies Meds Home Medications Medication Instructions Recorded Confirmed Type albuterol sulfate 90 mcg/actuation 2 puff inhalation Q6H PRN wheezing 07/01/23 07/01/23 History aerosol inhaler (Ventolin HFA) atorvastatin 10 mg tablet 10 mg PO DAILY 07/01/23 07/01/23 History ferrous gluconate 324 mg (37.5 mg 324 mg PO Q OTHER DAY 07/01/23 07/01/23 History iron) tablet fluoxetine 40 mg capsule 40 mg PO DAILY 07/01/23 07/01/23 History fluticasone propionate 50 1 spray intranasal DAILY 07/01/23 07/01/23 History mcg/actuation nasal spray,suspension hydroxyzine HCl 50 mg tablet 50 mg PO TID PRN Anxiety 07/01/23 07/01/23 History hydroxyzine pamoate 100 mg capsule 100 mg PO BEDTIME PRN Anxiety 07/01/23 07/01/23 History levothyroxine 75 mcg tablet 75 mcg PO DAILY 07/01/23 07/01/23 History magnesium oxide 400 mg PO BID 07/01/23 07/01/23 History nicotine (polacrilex) 2 mg buccal 2 mg buccal Q2H PRN Nicotine 07/01/23 07/01/23 History lozenge Cravings nicotine 21 mg/24 hr daily 1 patch transdermal DAILY 07/01/23 07/01/23 History transdermal patch olanzapine 10 mg tablet 10 PO QAM 07/01/23 History olanzapine 10 mg tablet 20 PO QPM 07/01/23 History pantoprazole 40 mg tablet,delayed 40 mg PO BID 07/01/23 07/01/23 History release prazosin 5 mg capsule 5 mg PO BEDTIME 07/01/23 07/01/23 History sumatriptan succinate 100 mg 100 mg PO PRN Migraine Headache 07/01/23 History tablet (Imitrex) topiramate 100 mg tablet 100 mg PO DAILY 07/01/23 History trazodone 100 mg tablet 300 PO BEDTIME 07/01/23 History ubrogepant 100 mg tablet (Ubrelvy) mg 07/01/23 History Allergies Allergies Allergy/AdvReac Type Severity Reaction Status Date / Time amoxicillin Allergy Unknown Unknown Verified 07/01/23 01:28 bupropion [From Wellbutrin] Allergy Unknown Unknown Verified 07/01/23 01:28 zolpidem [From Ambien] Allergy Unknown Unknown Verified 07/01/23 01:26 acetaminophen [From Vicodin] Allergy Unknown Verified 07/01/23 04:17 aspirin Allergy Unknown Verified 07/01/23 04:17 carbamazepine [From Tegretol] Allergy Unknown Verified 07/01/23 04:17 chlorpromazine Allergy Unknown Verified 07/01/23 04:17 [From Thorazine] ciprofloxacin [From Cipro] Allergy Unknown Verified 07/01/23 04:17 clindamycin Allergy Unknown Verified 07/01/23 04:17 clozapine [From Clozaril] Allergy Unknown Verified 07/01/23 04:17 erythromycin base Allergy Unknown Verified 07/01/23 04:17 haloperidol Allergy Unknown Verified 07/01/23 04:17 hydrocodone [From Vicodin] Allergy Unknown Verified 07/01/23 04:17 hydromorphone [From Dilaudid] Allergy Unknown Verified 07/01/23 04:17 meperidine [From Demerol] Allergy Unknown Verified 07/01/23 04:17 metoclopramide [From Reglan] Allergy Unknown Verified 07/01/23 04:17 NSAIDS (Non-Steroidal Allergy Unknown Verified 07/01/23 04:17 Anti-Inflamma oxcarbazepine Allergy Unknown Verified 07/01/23 04:17 paliperidone Allergy Unknown Verified 07/01/23 04:17 Penicillins Allergy Unknown Verified 07/01/23 04:17 prednisone Allergy Unknown Verified 07/01/23 04:17 pregabalin [From Lyrica] Allergy Unknown Verified 07/01/23 04:17 sertraline [From Zoloft] Allergy Unknown Verified 07/01/23 04:17 shellfish derived Allergy Unknown Verified 07/01/23 04:17 Sulfa (Sulfonamide Allergy Unknown Verified 07/01/23 10:19 Antibiotics) tetracycline Allergy Unknown Verified 07/01/23 04:17 venlafaxine Allergy Unknown Verified 07/01/23 04:17 lithium AdvReac Severe toxicity Verified 07/01/23 17:28 divalproex sodium AdvReac Unknown Unknown Verified 07/01/23 17:28 [From Depakote] iodine contrast Allergy Unknown Unknown Uncoded 07/01/23 10:19 Mental Status Exam Mental Status Exam Patient Appearance: Fatigued Patient Orientation: Person, Place, Time and Situation Level of Consciousness: Sedated Patient Behavior: Talkative and Good Eye Contact Mood Description: Depressed Affect Description: Flat Patient Cognition Impaired: No Speech Pattern: Spontaneous Speech Memory Description: Episodic Impaired Perceptual Disturbances: Depersonalization and Derealization Thought Process: Rumination Thought Content: positive for Perseveration and positive for Suicidal Ideation Depressive Symptoms: Increased Anxiety, Difficulty Sleeping and Thoughts of /Suicide Judgement: Fair Assessment & Plan Assessment & Plan (1) Bipolar disorder: Status: Acute Code(s): F31.9 - Bipolar disorder, unspecified (2) PTSD (post-traumatic stress disorder): Status: Acute Code(s): F43.10 - Post-traumatic stress disorder, unspecified Plan 48 yo female, hx of PTSD, Bipolar Disorder with SI-SIBS and attempt to wrap a pillow case around her neck today. Plan: Diagnostics Collateral contacts By history, several failed med trials- Lamictal trial 25 mg hs ?Latuda ?Vraylar Patient educated on: medication risk/benefits and therapeutic strategies Informed Consent: understands and further education needed Reason for continued inpatient stay Substantial Risk for: harm to self, inability to function and rapid decompensation Statement Statement: I have reviewed the history and physical and performed a pertinent examination on my patient. No changes have occurred unless specified. If the History and Physical was not performed prior to admission, the Hospitalist's service will be consulted for completing the admission physical. Time Spent With Patient Time: Total time managing care of this patient today ____ minutes.
[2023-07-01] MEDS: Magnesium Oxide 400 MG TABLET PO (17:43)
[2023-07-01 18:00] VITALS: BP 108/80; PULSE 76; RESP 18; TEMP 36.6; O2SAT 96
[2023-07-01] MEDS: traZODone HCL 100 MG TABLET 300 MG PO (20:12)
[2023-07-01] MEDS: Atorvastatin Calcium 10 MG TABLET PO (20:13)
[2023-07-01] MEDS: Prazosin HCL 5 MG CAPSULE PO (20:13)
[2023-07-01] MEDS: lamoTRIgine 25 MG TABLET PO (20:14)
[2023-07-01] MEDS: hydrOXYzine HCL 50 MG TABLET PO (20:14)
[2023-07-01 22:39] LABS: Glucose, Whole Blood 130 mg/dL (60-115)
[2023-07-02] MEDS: Levothyroxine Sodium 75 MCG TABLET PO (06:15)
[2023-07-02] MEDS: Omeprazole 40 MG CAPSULE.DR PO ×2 (06:15→16:26)
[2023-07-02 08:18] VITALS: BP 124/73; PULSE 101; RESP 16; TEMP 36.6; O2SAT 94
[2023-07-02 08:19] LABS: Glucose, Whole Blood 88 mg/dL (60-115)
[2023-07-02] MEDS: Celecoxib 200 MG CAPSULE PO ×2 (08:20→23:22)
[2023-07-02] MEDS: FLUoxetine HCl 20 MG CAPSULE 40 MG PO (08:20)
[2023-07-02] MEDS: Nicotine 21 MG PATCH.TD24 TRANSDERMA (08:20)
[2023-07-02] MEDS: Topiramate 100 MG TABLET PO ×2 (08:21→23:22)
[2023-07-02] MEDS: Magnesium Oxide 400 MG TABLET PO ×2 (08:21→17:42)
[2023-07-02] MEDS: clonazePAM 1 MG TABLET PO ×3 (08:21→23:27)
[2023-07-02] MEDS: metFORMIN HCl 500 MG TABLET PO (08:21)
[2023-07-02] MEDS: Fluticasone Propionate Nasal 16 GM SPRAY 1 SPRAY NOSTRIL-B (08:41)
[2023-07-02 08:54] LABS: MANUAL DIFF FLAG NO
[2023-07-02 08:58] LABS: Basophils Percent Auto 0.7 % (0-2); Eosinophils Absolute Auto 0.1 X10*3/uL (0.0-0.4); Eosinophils Percent Auto 2.3 % (0-4); Hematocrit 36.3 % (37.0-47.0); Hemoglobin 11.4 g/dl (12.0-16.0); Imm Gran Abs Auto 0.03 X10*3/uL (0.00-0.03); Imm Gran Pct Auto 0.5 % (0.0-0.4); Lymphocytes Absolute Auto 1.8 X10*3/uL (1.2-4.9); Lymphocytes Percent Auto 28.9 % (20-40); Mean Corpuscular HGB Conc 31.4 g/dl (31.0-35.0); Mean Corpuscular Hemoglobin 25.9 pg (27.0-33.0); Mean Corpuscular Volume 82.3 fL (80.0-98.0); Mean Platelet Volume 10.5 fL (9.4-12.3); Monocytes Absolute Auto 0.5 X10*3/uL (0.1-1.2); Monocytes Percent Auto 8.2 % (2-11); Neutrophils Absolute Auto 3.6 x10*3/uL (2.0-8.3); Neutrophils Percent Auto 59.4 % (45-73); Platelet Count 235 X10*3/uL (160-400); Red Blood Count 4.41 X10*6/uL (4.20-5.50); Red Cell Distribution Width 15.7 % (11.0-16.0); White Blood Count 6.1 X10*3/uL (4.8-10.8)
[2023-07-02 09:19] LABS: Alanine Aminotransferase 19 U/L (0-31); Alkaline Phosphatase 111 U/L (39-117); Anion Gap 14 (12-20); Aspartate Amino Transferase 15 U/L (5-31); Bilirubin Total 0.2 mg/dL (0.0-1.0); Blood Urea Nitrogen 23 mg/dL (9-16); Calcium 9.5 mg/dL (8.4-10.2); Carbon Dioxide 21 mmol/L (22-29); Chloride 111 mmol/L (96-108); Cholesterol 230 mg/dL (<200); Creatinine Clr Calc Pharmacy 91.4; Estimated Glomerular Filt Rate > 60; Glucose Fasting 96 mg/dL (60-99); HDL Cholesterol 38 mg/dL (>40); LDL Cholesterol Calculated 118 mg/dL (<100); Potassium 4.4 mmol/L (3.3-5.1); Sodium 142 mmol/L (135-145); Total Protein 7.1 g/dL (6.5-8.0); Triglycerides 373 mg/dL (<150)
[2023-07-02 09:21] LABS: Estimated Average Glucose 114 mg/dL; Hemoglobin A1c % 5.6 % (<6.0)
[2023-07-02 09:52] LABS: Folate 3.9 ng/mL (> or = 4.0); Vitamin B12 242 pg/mL (200-900)
[2023-07-02] MEDS: hydrOXYzine HCL 50 MG TABLET PO ×2 (09:53→16:26)
[2023-07-02] MEDS: OLANZapine ODT 10 MG TAB.RAPDIS 20 MG TRANSLINGU ×2 (10:16→23:23)
[2023-07-02] MEDS: OLANZapine 5 MG TABLET PO (17:42)
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
--- NOTE | 2023-07-02 18:54 | PC.NURSE ---
pt is missing $102, and a bag of belongings which includes her wallet, debit card and ID. They were left behind during her transpport from [facility]. Spoke to Jose M in Security [phone]. He will check with his tubing supervisor about having them sent here.
[2023-07-02] MEDS: Acetaminophen 325 MG TABLET 650 MG PO (20:43)
[2023-07-02] MEDS: Atorvastatin Calcium 10 MG TABLET PO (23:22)
[2023-07-02] MEDS: traZODone HCL 100 MG TABLET 300 MG PO (23:22)
[2023-07-02] MEDS: Prazosin HCL 5 MG CAPSULE PO (23:25)
[2023-07-03 03:02] VITALS: BP 116/64; PULSE 66; RESP 18; TEMP 36.6; O2SAT 98
--- NOTE | 2023-07-03 05:14 | PM.EVENT ---
Event Note Date of Service: 07/03/23 Event Note: 9:35 AM - Contacted to notify patient fell and was on the floor c/o right knee and arm pain (elbow and hand). Also, she hit her head. According to nursing the patient was in the bathroom when she felt. Her sitter heard her fall. Head and c-spine CT scans obtained are are unremarkable. Right elbow, hand and knee are negative. 5:00 AM - Evaluated patient. Now, she c/o left shoulder pain. She has limited ROM due to pain. Right knee: no effusion but tender to palpation. Will obtain left shoulder x-rays. Tx. Apply ice to right knee. Increase Tylenol to 975 mg PO every 6 hours as needed. Time Spent With Patient Time: Total time managing care of this patient today ____ minutes.
[2023-07-03 05:15] LABS: Glucose, Whole Blood 142 mg/dL (60-115)
[2023-07-03] MEDS: Levothyroxine Sodium 75 MCG TABLET PO (05:41)
[2023-07-03] MEDS: Acetaminophen 325 MG TABLET 975 MG PO (05:41)
[2023-07-03 07:55] VITALS: BP 96/64; PULSE 94; RESP 18; TEMP 2.4; TEMP 36.3; O2SAT 94
[2023-07-03] MEDS: Magnesium Oxide 400 MG TABLET PO ×2 (08:26→16:52)
[2023-07-03] MEDS: FLUoxetine HCl 20 MG CAPSULE 40 MG PO (08:26)
[2023-07-03] MEDS: OLANZapine ODT 10 MG TAB.RAPDIS 20 MG TRANSLINGU (08:27)
[2023-07-03] MEDS: Celecoxib 200 MG CAPSULE PO ×2 (08:27→21:02)
[2023-07-03] MEDS: metFORMIN HCl 500 MG TABLET PO (08:27)
[2023-07-03] MEDS: Topiramate 100 MG TABLET PO ×2 (08:27→21:02)
[2023-07-03] MEDS: Nicotine 21 MG PATCH.TD24 TRANSDERMA (08:32)
[2023-07-03] MEDS: Fluticasone Propionate Nasal 16 GM SPRAY 1 SPRAY NOSTRIL-B (08:41)
[2023-07-03] MEDS: Fluticasone/Vilanterol 100/25 BLST.W.DEV 1 PUFF INHALE (08:41)
--- NOTE | 2023-07-03 10:52 | HO.PSYCHPN ---
Subjective Subjective Date of Service: 07/03/23 Reason For Visit: Bipolar Disoder Unspecified Subjective Notes: Conditional Voluntary Healthcare Proxy: No Guardianship: No Medical Problems Affecting Mental Status: No Interim History: Pt wanting M3, but agrees to continue to work with the team on M5. Given a behavioral plan to review which she accepted. Contact with her prescriber, Fabiola Ochoa [phone]. Pt has a very supportive OP Team. She does self-sabotage when making progress and has a low threshold for stress with resulting SIBS. Discussion of why pt is taking Topamax--Migraine Discussion of stopping Klonopin-pt agrees to begin to taper. Discussion of making a change in regime from Prozac, Amitriptyline, Olanzapine to [place], Lamictal, [place]. Pt will consider Discussion of Prazosin trial. Pt will consider Medication Compliance: Yes Side effects from medications: No Attending Groups: Intermittent Review of Systems Acute medical concerns: No Medical Review of Systems: unchanged Review of Systems Review of Systems Yes all other systems are reviewed and are negative Mental Status Exam Mental Status Exam Patient Appearance: Fatigued Patient Orientation: Person, Place, Time and Situation Level of Consciousness: Sedated Patient Behavior: Talkative and Good Eye Contact Mood Description: Depressed Affect Description: Flat Patient Cognition Impaired: No Speech Pattern: Spontaneous Speech Memory Description: Episodic Impaired Perceptual Disturbances: Depersonalization and Derealization Thought Process: Rumination Thought Content: positive for Perseveration and positive for Suicidal Ideation Depressive Symptoms: Increased Anxiety, Difficulty Sleeping and Thoughts of /Suicide Judgement: Fair Diagnostics Vital Signs (24Hr): Vital Signs - 24 hr 07/03/23 03:02 Temperature 97.8 F Pulse Rate 66 Respiratory Rate 18 Blood Pressure 116/64 Pulse Oximetry 98 BMI result Body Mass Index 40.8 Labs 07/02/23 08:32 07/02/23 08:32 Labs: Laboratory Results - last 48 hr 07/01/23 07/02/23 07/02/23 22:35 08:13 08:32 WBC 6.1 RBC 4.41 Hgb 11.4 L Hct 36.3 L MCV 82.3 MCH 25.9 L MCHC 31.4 RDW 15.7 Plt Count 235 MPV 10.5 Immature Gran % (Auto) 0.5 H Neut % (Auto) 59.4 Lymph % (Auto) 28.9 [place] % (Auto) 8.2 Eos % (Auto) 2.3 Baso % (Auto) 0.7 Lymph # (Auto) 1.8 [place] # (Auto) 0.5 Eos # (Auto) 0.1 Baso # (Auto) 0.0 Abs Immat Gran (auto) 0.03 Absolute Neuts (auto) 3.6 Absolute Nucleated RBC 0.000 Nucleated RBC % (auto) 0.0 Sodium 142 Potassium 4.4 Chloride 111 H Carbon Dioxide 21 L Anion Gap 14 BUN 23 H Creatinine 0.88 Estim Creat Clear Calc 91.4 Estimated GFR > 60 POC Glucose 130 H 88 Fasting Glucose 96 Estimat Average Glucose 114 Hemoglobin A1c % 5.6 Calcium 9.5 Total Bilirubin 0.2 AST 15 ALT 19 Alkaline Phosphatase 111 Total Protein 7.1 Albumin 4.0 Triglycerides 373 H Cholesterol 230 H LDL Cholesterol, Calc 118 H HDL Cholesterol 38 L Vitamin B12 242 Folate 3.9 L TSH 0.50 07/03/23 05:10 WBC RBC Hgb Hct MCV MCH MCHC RDW Plt Count MPV Immature Gran % (Auto) Neut % (Auto) Lymph % (Auto) [place] % (Auto) Eos % (Auto) Baso % (Auto) Lymph # (Auto) [place] # (Auto) Eos # (Auto) Baso # (Auto) Abs Immat Gran (auto) Absolute Neuts (auto) Absolute Nucleated RBC Nucleated RBC % (auto) Sodium Potassium Chloride Carbon Dioxide Anion Gap BUN Creatinine Estim Creat Clear Calc Estimated GFR POC Glucose 142 H Fasting Glucose Estimat Average Glucose Hemoglobin A1c % Calcium Total Bilirubin AST ALT Alkaline Phosphatase Total Protein Albumin Triglycerides Cholesterol LDL Cholesterol, Calc HDL Cholesterol Vitamin B12 Folate TSH Imaging Radiology Impressions: ITS Impressions Elbow X-Ray 07/02/23 22:20 IMPRESSION: Unremarkable right hand Unremarkable right knee exam. Unremarkable right elbow exam. Hand X-Ray 07/02/23 22:20 IMPRESSION: Unremarkable right hand Unremarkable right knee exam. Unremarkable right elbow exam. Knee X-Ray 07/02/23 22:20 IMPRESSION: Unremarkable right hand Unremarkable right knee exam. Unremarkable right elbow exam. Cervical Spine CT 07/02/23 22:36 IMPRESSION: 1. No acute intracranial abnormality. 2. Within the limitations of motion artifact, no evidence of acute fracture or traumatic malalignment of the cervical spine. Head CT 07/02/23 22:36 IMPRESSION: 1. No acute intracranial abnormality. 2. Within the limitations of motion artifact, no evidence of acute fracture or traumatic malalignment of the cervical spine. Medications Medications Current Medications Acetaminophen (Acetaminophen 325 Mg Tablet) 975 mg PO Q6H PRN PRN Reason: Headache/Pain Mild Scale (1-3) Last Admin: 07/03/23 05:41 Dose: 975 mg Al Hydroxide/Mg Hydroxide (Magnesium Hydrox/Alum Hydrox 30 Ml Oral.Susp) 30 ml PO Q6H PRN PRN Reason: Heartburn/Nausea Atorvastatin Calcium (Atorvastatin Calcium 10 Mg Tablet) 10 mg PO BEDTIME [facility] Last Admin: 07/02/23 23:22 Dose: 10 mg Celecoxib (Celecoxib 200 Mg Capsule) 200 mg PO BID [facility] Last Admin: 07/03/23 08:27 Dose: 200 mg Clonazepam (Clonazepam 1 Mg Tablet) 1 mg PO TID PRN PRN Reason: Anxiety Last Admin: 07/02/23 23:27 Dose: 1 mg Fluoxetine HCl (Fluoxetine Hcl 20 Mg Capsule) 40 mg PO DAILY [facility] Last Admin: 07/03/23 08:26 Dose: 40 mg Fluticasone Propionate (Fluticasone Propionate Nasal 16 Gm [place]) 1 spray NOSTRIL-B DAILY [facility] Last Admin: 07/03/23 08:41 Dose: 1 spray Fluticasone/Vilanterol (Fluticasone/Vilanterol 100/25 Blst.W.Dev) 1 puff INHALE RDAILY [facility] Last Admin: 07/03/23 08:41 Dose: 1 puff Hydroxyzine HCl (Hydroxyzine Hcl 50 Mg Tablet) 50 mg PO Q8H PRN PRN Reason: Anxiety Last Admin: 07/02/23 16:26 Dose: 50 mg Lamotrigine (Lamotrigine 25 Mg Tablet) 25 mg PO BEDTIME [facility] Last Admin: 07/03/23 02:21 Dose: Not Given Levothyroxine Sodium (Levothyroxine Sodium 75 Mcg Tablet) 75 mcg PO DAILY@0600 [facility] Last Admin: 07/03/23 05:41 Dose: 75 mcg Magnesium Hydroxide (Milk Of Magnesia 30 Ml Oral.Susp) 30 ml PO DAILY PRN PRN Reason: Constipation Magnesium Oxide (Magnesium Oxide 400 Mg Tablet) 400 mg PO BIDPC [facility] Last Admin: 07/03/23 08:26 Dose: 400 mg Metformin HCl (Metformin Hcl 500 Mg Tablet) 500 mg PO DAILY [facility] Last Admin: 07/03/23 08:27 Dose: 500 mg Nicotine (Nicotine 21 Mg Patch.Td24) 21 mg TRANSDERMA DAILY [facility] Last Admin: 07/03/23 08:32 Dose: 21 mg Nicotine Polacrilex (Nicotine Polacrilex 2 Mg Gum) 4 mg BUCCAL Q2H PRN PRN Reason: Nicotine Cravings Olanzapine (Olanzapine 5 Mg Tablet) 5 mg PO TID PRN PRN Reason: agitation Last Admin: 07/02/23 17:42 Dose: 5 mg Olanzapine (Olanzapine Odt 10 Mg Tab.Rapdis) 20 mg TRANSLINGU BID [facility] Last Admin: 07/03/23 08:27 Dose: 20 mg Omeprazole (Omeprazole 40 Mg Capsule.Dr) 40 mg PO BID@0630,1630 [facility] Last Admin: 07/03/23 08:42 Dose: Not Given Prazosin HCl (Prazosin Hcl 5 Mg Capsule) 5 mg PO BEDTIME [facility]; Protocol Last Admin: 07/02/23 23:25 Dose: 5 mg Topiramate (Topiramate 100 Mg Tablet) 100 mg PO BID [facility] Last Admin: 07/03/23 08:27 Dose: 100 mg Trazodone HCl (Trazodone Hcl 100 Mg Tablet) 300 mg PO BEDTIME [facility] Last Admin: 07/02/23 23:22 Dose: 300 mg Allergies Allergies Allergy/AdvReac Type Severity Reaction Status Date / Time amoxicillin Allergy Unknown Unknown Verified 07/01/23 01:28 bupropion [From Wellbutrin] Allergy Unknown Unknown Verified 07/01/23 01:28 zolpidem [From Ambien] Allergy Unknown Unknown Verified 07/01/23 01:26 acetaminophen [From Vicodin] Allergy Unknown Verified 07/01/23 04:17 aspirin Allergy Unknown Verified 07/01/23 04:17 carbamazepine [From Tegretol] Allergy Unknown Verified 07/01/23 04:17 chlorpromazine Allergy Unknown Verified 07/01/23 04:17 [From Thorazine] ciprofloxacin [From Cipro] Allergy Unknown Verified 07/01/23 04:17 clindamycin Allergy Unknown Verified 07/01/23 04:17 clozapine [From Clozaril] Allergy Unknown Verified 07/01/23 04:17 erythromycin base Allergy Unknown Verified 07/01/23 04:17 haloperidol Allergy Unknown Verified 07/01/23 04:17 hydrocodone [From Vicodin] Allergy Unknown Verified 07/01/23 04:17 hydromorphone [From Dilaudid] Allergy Unknown Verified 07/01/23 04:17 meperidine [From Demerol] Allergy Unknown Verified 07/01/23 04:17 metoclopramide [From Reglan] Allergy Unknown Verified 07/01/23 04:17 NSAIDS (Non-Steroidal Allergy Unknown Verified 07/01/23 04:17 Anti-Inflamma oxcarbazepine Allergy Unknown Verified 07/01/23 04:17 paliperidone Allergy Unknown Verified 07/01/23 04:17 Penicillins Allergy Unknown Verified 07/01/23 04:17 prednisone Allergy Unknown Verified 07/01/23 04:17 pregabalin [From Lyrica] Allergy Unknown Verified 07/01/23 04:17 sertraline [From Zoloft] Allergy Unknown Verified 07/01/23 04:17 shellfish derived Allergy Unknown Verified 07/01/23 04:17 Sulfa (Sulfonamide Allergy Unknown Verified 07/01/23 10:19 Antibiotics) tetracycline Allergy Unknown Verified 07/01/23 04:17 venlafaxine Allergy Unknown Verified 07/01/23 04:17 lithium AdvReac Severe toxicity Verified 07/01/23 17:28 divalproex sodium AdvReac Unknown Unknown Verified 07/01/23 17:28 [From Depakote] iodine contrast Allergy Unknown Unknown Uncoded 07/01/23 10:19 Assessment & Plan Assessment & Plan (1) PTSD (post-traumatic stress disorder): Status: Acute Code(s): F43.10 - Post-traumatic stress disorder, unspecified (2) Bipolar disorder: Status: Acute Code(s): F31.9 - Bipolar disorder, unspecified Assessment and Plan: 07/03/23 Pt will consider proposed changes from her OP prescriber and will let us know. Decrease Klonopin from 3 mg daily to 2.5 mg daily prn. Pt agreed to this change. Plan 48 yo F with MDD, fibromyalgia, migraines, hypothyroidism, asthma, pre-diabetes admitted to psych for SI and SIB. Reports no medical complaints at this time. Hypothyroidism: continue home levothyroxine Hyperlipidemia: continue home atorvastatin diabetes: continue home metformin Obesity: consider weight loss Patient has no acute medical complaints currently, continue under care of psych. Signing off. Patient educated on: medication risk/benefits Informed Consent: understands and further education needed Reason for continued inpatient stay Substantial Risk for: rapid decompensation Time Spent With Patient Time: Total time managing care of this patient today ____ minutes.
[2023-07-03] MEDS: clonazePAM 1 MG TABLET PO (14:21)
--- NOTE | 2023-07-03 14:29 | PC.NURSE ---
pt placed herself on floor in hallway during morning reports, she continues on 1:1
[2023-07-03] MEDS: Omeprazole 40 MG CAPSULE.DR PO (16:52)
[2023-07-03 18:00] VITALS: BP 116/66; PULSE 95; RESP 18; TEMP 36.3; O2SAT 99
[2023-07-03] MEDS: Prazosin HCL 5 MG CAPSULE PO (21:02)
[2023-07-03] MEDS: OLANZapine 10 MG TABLET 20 MG PO (21:03)
[2023-07-03] MEDS: lamoTRIgine 25 MG TABLET PO (21:03)
[2023-07-03] MEDS: traZODone HCL 100 MG TABLET 300 MG PO (21:04)
[2023-07-03] MEDS: Atorvastatin Calcium 20 MG TABLET PO (21:04)
[2023-07-03 22:23] LABS: Glucose, Whole Blood 109 mg/dL (60-115)
[2023-07-04] MEDS: Levothyroxine Sodium 75 MCG TABLET PO (05:40)
[2023-07-04] MEDS: Omeprazole 40 MG CAPSULE.DR PO ×2 (06:11→16:00)
[2023-07-04] MEDS: Multivitamin TABLET 1 TAB PO (08:08)
[2023-07-04] MEDS: Thiamine HCL 100 MG TABLET PO (08:09)
[2023-07-04] MEDS: Magnesium Oxide 400 MG TABLET PO ×2 (08:09→16:00)
[2023-07-04] MEDS: Topiramate 100 MG TABLET PO ×2 (08:09→19:35)
[2023-07-04] MEDS: Celecoxib 200 MG CAPSULE PO ×2 (08:09→19:35)
[2023-07-04] MEDS: OLANZapine 10 MG TABLET 20 MG PO ×2 (08:09→19:34)
[2023-07-04] MEDS: metFORMIN HCl 500 MG TABLET PO (08:09)
[2023-07-04] MEDS: Folic Acid 1 MG TABLET PO (08:09)
[2023-07-04] MEDS: FLUoxetine HCl 20 MG CAPSULE 40 MG PO (08:09)
[2023-07-04] MEDS: NeoMY/Polymyx/Bacit/Ointment 14 GM Tube TOPICAL (08:14)
[2023-07-04] MEDS: Fluticasone Propionate Nasal 16 GM SPRAY 1 SPRAY NOSTRIL-B (08:14)
[2023-07-04] MEDS: Nicotine 21 MG PATCH.TD24 TRANSDERMA (08:16)
[2023-07-04 08:37] VITALS: BP 124/73; PULSE 98; RESP 14; TEMP 36.8; O2SAT 95
[2023-07-04] MEDS: clonazePAM 1 MG TABLET PO ×2 (09:46→21:50)
[2023-07-04 10:19] LABS: Glucose, Whole Blood 134 mg/dL (60-115)
--- NOTE | 2023-07-04 13:40 | P.PNPSI_ITS ---
Subjective Subjective Date of Service: 07/04/23 Reason For Visit: Bipolar Disoder Unspecified Subjective Notes: Conditional Voluntary Interim History: Reviewed with . pt continues on 1:1. Pt reports feeling anxious and depressed ; pt stated I just want to leave and go to a [facility] . pt reports auditory hallucinations that tell me I'm no good but they are not that bad . denies SI/HI/VH. Medication Compliance: Yes Review of Systems Constitutional: Reports as per HPI Eyes: Reports as per HPI Reports as per HPI Cardiovascular: Reports as per HPI Respiratory: Reports as per HPI Gastrointestinal: Reports as per HPI Genitourinary: Reports as per HPI Musculoskeletal: Reports as per HPI Skin/Breast: Reports as per HPI Reports as per HPI Psychiatric: Reports as per HPI Endocrine: Reports as per HPI Hematologic/Lymphatic: Reports as per HPI Allergic/Immunologic: Reports as per HPI Mental Status Exam Mental Status Exam Narrative: Pt is alert and oriented; behavior is cooperative and calm; dressed in casual attire; mood is described as depressed ; eye contact appropriate; Speech is normal rate, volume and prosody and not pressured; thought process is organized; Thought content is on discharge; denies SI/HI/VH. Pt reports auditory hallucinations. Diagnostics Vital Signs (24Hr): Vital Signs - 24 hr 07/03/23 18:00 07/04/23 08:37 Temperature 97.4 F 98.2 F Pulse Rate 95 98 Respiratory Rate 18 14 Blood Pressure 116/66 124/73 Pulse Oximetry 99 95 Oxygen Delivery Method Room Air Room Air BMI result Body Mass Index 40.8 Labs 07/02/23 08:32 07/02/23 08:32 Labs: Laboratory Results - last 48 hr 07/03/23 07/03/23 07/04/23 05:10 22:17 10:13 POC Glucose 142 H 109 134 H Imaging Radiology Impressions: ITS Impressions Elbow X-Ray 07/02/23 22:20 IMPRESSION: Unremarkable right hand Unremarkable right knee exam. Unremarkable right elbow exam. Hand X-Ray 07/02/23 22:20 IMPRESSION: Unremarkable right hand Unremarkable right knee exam. Unremarkable right elbow exam. Knee X-Ray 07/02/23 22:20 IMPRESSION: Unremarkable right hand Unremarkable right knee exam. Unremarkable right elbow exam. Cervical Spine CT 07/02/23 22:36 IMPRESSION: 1. No acute intracranial abnormality. 2. Within the limitations of motion artifact, no evidence of acute fracture or traumatic malalignment of the cervical spine. Head CT 07/02/23 22:36 IMPRESSION: 1. No acute intracranial abnormality. 2. Within the limitations of motion artifact, no evidence of acute fracture or traumatic malalignment of the cervical spine. Shoulder X-Ray 07/03/23 09:57 IMPRESSION: No acute bony abnormality. Medications Medications Current Medications Acetaminophen (Acetaminophen 325 Mg Tablet) 975 mg PO Q6H PRN PRN Reason: Headache/Pain Mild Scale (1-3) Last Admin: 07/03/23 05:41 Dose: 975 mg Al Hydroxide/Mg Hydroxide (Magnesium Hydrox/Alum Hydrox 30 Ml Oral.Susp) 30 ml PO Q6H PRN PRN Reason: Heartburn/Nausea Atorvastatin Calcium (Atorvastatin Calcium 20 Mg Tablet) 20 mg PO BEDTIME [facility] Last Admin: 07/03/23 21:04 Dose: 20 mg Celecoxib (Celecoxib 200 Mg Capsule) 200 mg PO BID [facility] Last Admin: 07/04/23 08:09 Dose: 200 mg Clonazepam (Clonazepam 1 Mg Tablet) 1 mg PO BID PRN PRN Reason: anxiety Last Admin: 07/04/23 09:46 Dose: 1 mg Clonazepam (Clonazepam 0.5 Mg Tablet) 0.5 mg PO DAILY PRN PRN Reason: Anxiety Fluoxetine HCl (Fluoxetine Hcl 20 Mg Capsule) 40 mg PO DAILY [facility] Last Admin: 07/04/23 08:09 Dose: 40 mg Fluticasone Propionate (Fluticasone Propionate Nasal 16 Gm [place]) 1 spray NOSTRIL-B DAILY [facility] Last Admin: 07/04/23 08:14 Dose: 1 spray Fluticasone/Vilanterol (Fluticasone/Vilanterol 100/25 Blst.W.Dev) 1 puff INHALE RDAILY [facility] Last Admin: 07/04/23 08:17 Dose: Not Given Folic Acid (Folic Acid 1 Mg Tablet) 1 mg PO DAILY [facility] Last Admin: 07/04/23 08:09 Dose: 1 mg Hydroxyzine HCl (Hydroxyzine Hcl 50 Mg Tablet) 50 mg PO Q8H PRN PRN Reason: Anxiety Last Admin: 07/02/23 16:26 Dose: 50 mg Lamotrigine (Lamotrigine 25 Mg Tablet) 25 mg PO BEDTIME [facility] Last Admin: 07/03/23 21:03 Dose: 25 mg Levothyroxine Sodium (Levothyroxine Sodium 75 Mcg Tablet) 75 mcg PO DAILY@0600 [facility] Last Admin: 07/04/23 05:40 Dose: 75 mcg Magnesium Hydroxide (Milk Of Magnesia 30 Ml Oral.Susp) 30 ml PO DAILY PRN PRN Reason: Constipation Magnesium Oxide (Magnesium Oxide 400 Mg Tablet) 400 mg PO BIDPC [facility] Last Admin: 07/04/23 08:09 Dose: 400 mg Metformin HCl (Metformin Hcl 500 Mg Tablet) 500 mg PO DAILY [facility] Last Admin: 07/04/23 08:09 Dose: 500 mg Multivitamins/Vitamin C (Multivitamin Tablet) 1 tab PO DAILY [facility] Last Admin: 07/04/23 08:08 Dose: 1 tab Neomycin/Polymyxin/Bacitracin (Neomy/Polymyx/Bacit/Ointment 14 Gm [place]) 1 gm TOPICAL BID [facility]; Protocol Last Admin: 07/04/23 08:14 Dose: 1 gm Nicotine (Nicotine 21 Mg Patch.Td24) 21 mg TRANSDERMA DAILY [facility] Last Admin: 07/04/23 08:16 Dose: 21 mg Nicotine Polacrilex (Nicotine Polacrilex 2 Mg Gum) 4 mg BUCCAL Q2H PRN PRN Reason: Nicotine Cravings Olanzapine (Olanzapine 5 Mg Tablet) 5 mg PO TID PRN PRN Reason: agitation Last Admin: 07/02/23 17:42 Dose: 5 mg Olanzapine (Olanzapine 10 Mg Tablet) 20 mg PO BID [facility] Last Admin: 07/04/23 08:09 Dose: 20 mg Omeprazole (Omeprazole 40 Mg Capsule.Dr) 40 mg PO BID@0630,1630 [facility] Last Admin: 07/04/23 06:11 Dose: 40 mg Prazosin HCl (Prazosin Hcl 5 Mg Capsule) 5 mg PO BEDTIME [facility]; Protocol Last Admin: 07/03/23 21:02 Dose: 5 mg Thiamine HCl (Thiamine Hcl 100 Mg Tablet) 100 mg PO DAILY [facility] Last Admin: 07/04/23 08:09 Dose: 100 mg Topiramate (Topiramate 100 Mg Tablet) 100 mg PO BID [facility] Last Admin: 07/04/23 08:09 Dose: 100 mg Trazodone HCl (Trazodone Hcl 100 Mg Tablet) 300 mg PO BEDTIME [facility] Last Admin: 07/03/23 21:04 Dose: 300 mg Allergies Allergies Allergy/AdvReac Type Severity Reaction Status Date / Time amoxicillin Allergy Unknown Unknown Verified 07/01/23 01:28 bupropion [From Wellbutrin] Allergy Unknown Unknown Verified 07/01/23 01:28 zolpidem [From Ambien] Allergy Unknown Unknown Verified 07/01/23 01:26 acetaminophen [From Vicodin] Allergy Unknown Verified 07/01/23 04:17 aspirin Allergy Unknown Verified 07/01/23 04:17 carbamazepine [From Tegretol] Allergy Unknown Verified 07/01/23 04:17 chlorpromazine Allergy Unknown Verified 07/01/23 04:17 [From Thorazine] ciprofloxacin [From Cipro] Allergy Unknown Verified 07/01/23 04:17 clindamycin Allergy Unknown Verified 07/01/23 04:17 clozapine [From Clozaril] Allergy Unknown Verified 07/01/23 04:17 erythromycin base Allergy Unknown Verified 07/01/23 04:17 haloperidol Allergy Unknown Verified 07/01/23 04:17 hydrocodone [From Vicodin] Allergy Unknown Verified 07/01/23 04:17 hydromorphone [From Dilaudid] Allergy Unknown Verified 07/01/23 04:17 meperidine [From Demerol] Allergy Unknown Verified 07/01/23 04:17 metoclopramide [From Reglan] Allergy Unknown Verified 07/01/23 04:17 NSAIDS (Non-Steroidal Allergy Unknown Verified 07/01/23 04:17 Anti-Inflamma oxcarbazepine Allergy Unknown Verified 07/01/23 04:17 paliperidone Allergy Unknown Verified 07/01/23 04:17 Penicillins Allergy Unknown Verified 07/01/23 04:17 prednisone Allergy Unknown Verified 07/01/23 04:17 pregabalin [From Lyrica] Allergy Unknown Verified 07/01/23 04:17 sertraline [From Zoloft] Allergy Unknown Verified 07/01/23 04:17 shellfish derived Allergy Unknown Verified 07/01/23 04:17 Sulfa (Sulfonamide Allergy Unknown Verified 07/01/23 10:19 Antibiotics) tetracycline Allergy Unknown Verified 07/01/23 04:17 venlafaxine Allergy Unknown Verified 07/01/23 04:17 lithium AdvReac Severe toxicity Verified 07/01/23 17:28 divalproex sodium AdvReac Unknown Unknown Verified 07/01/23 17:28 [From Depakote] iodine contrast Allergy Unknown Unknown Uncoded 07/01/23 10:19 Assessment & Plan Assessment & Plan (1) PTSD (post-traumatic stress disorder): Status: Acute Code(s): F43.10 - Post-traumatic stress disorder, unspecified (2) Bipolar disorder: Status: Acute Code(s): F31.9 - Bipolar disorder, unspecified Assessment and Plan: 07/03/23 Pt will consider proposed changes from her OP prescriber and will let us know. Decrease Klonopin from 3 mg daily to 2.5 mg daily prn. Pt agreed to this change. 07/04:pt continues on 1:1. Pt reports feeling anxious and depressed ; pt stated I just want to leave and go to a [facility] . pt reports auditory hallucinations that tell me I'm no good but they are not that bad . denies SI/HI/VH. Continue current tx plan. Plan Patient educated on: diagnosis and medication risk/benefits Informed Consent: understands Reason for continued inpatient stay Substantial Risk for: med/psych decompensation Time Spent With Patient Time: Total time managing care of this patient today _20___ minutes.
[2023-07-04] MEDS: hydrOXYzine HCL 50 MG TABLET PO (16:00)
[2023-07-04 18:00] VITALS: BP 122/68; PULSE 96; RESP 17; TEMP 36.7; O2SAT 96
[2023-07-04] MEDS: traZODone HCL 100 MG TABLET 300 MG PO (19:34)
[2023-07-04] MEDS: Atorvastatin Calcium 20 MG TABLET PO (19:34)
[2023-07-04] MEDS: Prazosin HCL 5 MG CAPSULE PO (19:35)
[2023-07-04 22:34] LABS: Glucose, Whole Blood 121 mg/dL (60-115)
[2023-07-05] MEDS: Levothyroxine Sodium 75 MCG TABLET PO (06:37)
[2023-07-05] MEDS: Omeprazole 40 MG CAPSULE.DR PO ×2 (06:48→17:28)
[2023-07-05] MEDS: Topiramate 100 MG TABLET PO ×2 (08:46→21:58)
[2023-07-05] MEDS: metFORMIN HCl 500 MG TABLET PO (08:46)
[2023-07-05] MEDS: Fluticasone Propionate Nasal 16 GM SPRAY 1 SPRAY NOSTRIL-B (08:47)
[2023-07-05] MEDS: FLUoxetine HCl 20 MG CAPSULE 40 MG PO (08:47)
[2023-07-05] MEDS: Folic Acid 1 MG TABLET PO (08:47)
[2023-07-05] MEDS: clonazePAM 0.5 MG TABLET PO (08:47)
[2023-07-05] MEDS: Celecoxib 200 MG CAPSULE PO ×2 (08:47→21:58)
[2023-07-05] MEDS: OLANZapine 10 MG TABLET 20 MG PO ×2 (08:48→22:00)
[2023-07-05] MEDS: Magnesium Oxide 400 MG TABLET PO ×2 (08:48→17:39)
[2023-07-05] MEDS: Nicotine 21 MG PATCH.TD24 TRANSDERMA (08:53)
[2023-07-05 09:01] VITALS: BP 96/60; PULSE 84; RESP 18; TEMP 36.2; O2SAT 95
--- NOTE | 2023-07-05 10:17 | HO.PSYCHPN ---
Subjective Subjective Date of Service: 07/05/23 Reason For Visit: Bipolar Disoder Unspecified Subjective Notes: Conditional Voluntary Interim History: Patient was seen and discussed in rounds today. Records and plans were reviewed. She continues to be on one-to-one observation for safety concerns. She has been medication compliant. Labile at times. Safe on the unit so far. No behavioral issues. No complaints or side effects. No changes were made. Review of Systems Review of Systems Yes all other systems are reviewed and are negative Mental Status Exam Mental Status Exam Narrative: In today's visit she is alert, oriented and pleasant. Normal speech. Good eye contact. Affect is appropriate and varied. No active SI. Some auditory hallucinations reported. Cognitively intact. Judgment is intact Diagnostics Vital Signs (24Hr): Vital Signs - 24 hr 07/04/23 18:00 07/05/23 09:01 Temperature 98.0 F 97.2 F Pulse Rate 96 84 Respiratory Rate 17 18 Blood Pressure 122/68 96/60 Pulse Oximetry 96 95 Oxygen Delivery Method Room Air BMI result Body Mass Index 40.8 Labs 07/02/23 08:32 07/02/23 08:32 Labs: Laboratory Results - last 48 hr 07/03/23 07/04/23 07/04/23 22:17 10:13 22:30 POC Glucose 109 134 H 121 H Imaging Radiology Impressions: ITS Impressions Elbow X-Ray 07/02/23 22:20 IMPRESSION: Unremarkable right hand Unremarkable right knee exam. Unremarkable right elbow exam. Hand X-Ray 07/02/23 22:20 IMPRESSION: Unremarkable right hand Unremarkable right knee exam. Unremarkable right elbow exam. Knee X-Ray 07/02/23 22:20 IMPRESSION: Unremarkable right hand Unremarkable right knee exam. Unremarkable right elbow exam. Cervical Spine CT 07/02/23 22:36 IMPRESSION: 1. No acute intracranial abnormality. 2. Within the limitations of motion artifact, no evidence of acute fracture or traumatic malalignment of the cervical spine. Head CT 07/02/23 22:36 IMPRESSION: 1. No acute intracranial abnormality. 2. Within the limitations of motion artifact, no evidence of acute fracture or traumatic malalignment of the cervical spine. Shoulder X-Ray 07/03/23 09:57 IMPRESSION: No acute bony abnormality. Medications Medications Current Medications Acetaminophen (Acetaminophen 325 Mg Tablet) 975 mg PO Q6H PRN PRN Reason: Headache/Pain Mild Scale (1-3) Last Admin: 07/03/23 05:41 Dose: 975 mg Al Hydroxide/Mg Hydroxide (Magnesium Hydrox/Alum Hydrox 30 Ml Oral.Susp) 30 ml PO Q6H PRN PRN Reason: Heartburn/Nausea Atorvastatin Calcium (Atorvastatin Calcium 20 Mg Tablet) 20 mg PO BEDTIME REPLACED BY [facility] Last Admin: 07/04/23 19:34 Dose: 20 mg Celecoxib (Celecoxib 200 Mg Capsule) 200 mg PO BID REPLACED BY [facility] Last Admin: 07/05/23 08:47 Dose: 200 mg Clonazepam (Clonazepam 1 Mg Tablet) 1 mg PO BID PRN PRN Reason: anxiety Last Admin: 07/04/23 21:50 Dose: 1 mg Clonazepam (Clonazepam 0.5 Mg Tablet) 0.5 mg PO DAILY PRN PRN Reason: Anxiety Last Admin: 07/05/23 08:47 Dose: 0.5 mg Fluoxetine HCl (Fluoxetine Hcl 20 Mg Capsule) 40 mg PO DAILY REPLACED BY [facility] Last Admin: 07/05/23 08:47 Dose: 40 mg Fluticasone Propionate (Fluticasone Propionate Nasal 16 Gm [place]) 1 spray NOSTRIL-B DAILY REPLACED BY [facility] Last Admin: 07/05/23 08:47 Dose: 1 spray Fluticasone/Vilanterol (Fluticasone/Vilanterol 100/25 Blst.W.Dev) 1 puff INHALE RDAILY REPLACED BY [facility] Last Admin: 07/05/23 09:26 Dose: Not Given Folic Acid (Folic Acid 1 Mg Tablet) 1 mg PO DAILY REPLACED BY [facility] Last Admin: 07/05/23 08:47 Dose: 1 mg Hydroxyzine HCl (Hydroxyzine Hcl 50 Mg Tablet) 50 mg PO Q8H PRN PRN Reason: Anxiety Last Admin: 07/04/23 16:00 Dose: 50 mg Lamotrigine (Lamotrigine 25 Mg Tablet) 25 mg PO BEDTIME REPLACED BY [facility] Last Admin: 07/04/23 21:56 Dose: Not Given Levothyroxine Sodium (Levothyroxine Sodium 75 Mcg Tablet) 75 mcg PO DAILY@0600 REPLACED BY [facility] Last Admin: 07/05/23 06:37 Dose: 75 mcg Magnesium Hydroxide (Milk Of Magnesia 30 Ml Oral.Susp) 30 ml PO DAILY PRN PRN Reason: Constipation Magnesium Oxide (Magnesium Oxide 400 Mg Tablet) 400 mg PO BIDPC REPLACED BY [facility] Last Admin: 07/05/23 08:48 Dose: 400 mg Metformin HCl (Metformin Hcl 500 Mg Tablet) 500 mg PO DAILY REPLACED BY [facility] Last Admin: 07/05/23 08:46 Dose: 500 mg Multivitamins/Vitamin C (Multivitamin Tablet) 1 tab PO DAILY REPLACED BY [facility] Last Admin: 07/05/23 08:46 Dose: Not Given Neomycin/Polymyxin/Bacitracin (Neomy/Polymyx/Bacit/Ointment 14 Gm Tube) 1 gm TOPICAL BID REPLACED BY [facility]; Protocol Last Admin: 07/04/23 22:05 Dose: Not Given Nicotine (Nicotine 21 Mg Patch.Td24) 21 mg TRANSDERMA DAILY REPLACED BY [facility] Last Admin: 07/05/23 08:53 Dose: 21 mg Nicotine Polacrilex (Nicotine Polacrilex 2 Mg Gum) 4 mg BUCCAL Q2H PRN PRN Reason: Nicotine Cravings Olanzapine (Olanzapine 5 Mg Tablet) 5 mg PO TID PRN PRN Reason: agitation Last Admin: 07/02/23 17:42 Dose: 5 mg Olanzapine (Olanzapine 10 Mg Tablet) 20 mg PO BID REPLACED BY [facility] Last Admin: 07/05/23 08:48 Dose: 20 mg Omeprazole (Omeprazole 40 Mg Capsule.Dr) 40 mg PO BID@0630,1630 REPLACED BY [facility] Last Admin: 07/05/23 06:48 Dose: 40 mg Prazosin HCl (Prazosin Hcl 5 Mg Capsule) 5 mg PO BEDTIME REPLACED BY [facility]; Protocol Last Admin: 07/04/23 19:35 Dose: 5 mg Thiamine HCl (Thiamine Hcl 100 Mg Tablet) 100 mg PO DAILY REPLACED BY [facility] Last Admin: 07/05/23 08:47 Dose: Not Given Topiramate (Topiramate 100 Mg Tablet) 100 mg PO BID REPLACED BY [facility] Last Admin: 07/05/23 08:46 Dose: 100 mg Trazodone HCl (Trazodone Hcl 100 Mg Tablet) 300 mg PO BEDTIME REPLACED BY [facility] Last Admin: 07/04/23 19:34 Dose: 300 mg Allergies Allergies Allergy/AdvReac Type Severity Reaction Status Date / Time amoxicillin Allergy Unknown Unknown Verified 07/01/23 01:28 bupropion [From Wellbutrin] Allergy Unknown Unknown Verified 07/01/23 01:28 zolpidem [From Ambien] Allergy Unknown Unknown Verified 07/01/23 01:26 acetaminophen [From Vicodin] Allergy Unknown Verified 07/01/23 04:17 aspirin Allergy Unknown Verified 07/01/23 04:17 carbamazepine [From Tegretol] Allergy Unknown Verified 07/01/23 04:17 chlorpromazine Allergy Unknown Verified 07/01/23 04:17 [From Thorazine] ciprofloxacin [From Cipro] Allergy Unknown Verified 07/01/23 04:17 clindamycin Allergy Unknown Verified 07/01/23 04:17 clozapine [From Clozaril] Allergy Unknown Verified 07/01/23 04:17 erythromycin base Allergy Unknown Verified 07/01/23 04:17 haloperidol Allergy Unknown Verified 07/01/23 04:17 hydrocodone [From Vicodin] Allergy Unknown Verified 07/01/23 04:17 hydromorphone [From Dilaudid] Allergy Unknown Verified 07/01/23 04:17 meperidine [From Demerol] Allergy Unknown Verified 07/01/23 04:17 metoclopramide [From Reglan] Allergy Unknown Verified 07/01/23 04:17 NSAIDS (Non-Steroidal Allergy Unknown Verified 07/01/23 04:17 Anti-Inflamma oxcarbazepine Allergy Unknown Verified 07/01/23 04:17 paliperidone Allergy Unknown Verified 07/01/23 04:17 Penicillins Allergy Unknown Verified 07/01/23 04:17 prednisone Allergy Unknown Verified 07/01/23 04:17 pregabalin [From Lyrica] Allergy Unknown Verified 07/01/23 04:17 sertraline [From Zoloft] Allergy Unknown Verified 07/01/23 04:17 shellfish derived Allergy Unknown Verified 07/01/23 04:17 Sulfa (Sulfonamide Allergy Unknown Verified 07/01/23 10:19 Antibiotics) tetracycline Allergy Unknown Verified 07/01/23 04:17 venlafaxine Allergy Unknown Verified 07/01/23 04:17 lithium AdvReac Severe toxicity Verified 07/01/23 17:28 divalproex sodium AdvReac Unknown Unknown Verified 07/01/23 17:28 [From Depakote] iodine contrast Allergy Unknown Unknown Uncoded 07/01/23 10:19 Assessment & Plan Assessment & Plan (1) PTSD (post-traumatic stress disorder): Status: Acute Code(s): F43.10 - Post-traumatic stress disorder, unspecified (2) Bipolar disorder: Status: Acute Code(s): F31.9 - Bipolar disorder, unspecified Assessment and Plan: 07/03/23 Pt will consider proposed changes from her OP prescriber and will let us know. Decrease Klonopin from 3 mg daily to 2.5 mg daily prn. Pt agreed to this change. 07/04:pt continues on 1:1. Pt reports feeling anxious and depressed ; pt stated I just want to leave and go to a [facility] . pt reports auditory hallucinations that tell me I'm no good but they are not that bad . denies SI/HI/VH. Continue current tx plan. 07/05/23: Continue current regimen and plans Plan Reason for continued inpatient stay Substantial Risk for: med/psych decompensation Time Spent With Patient Time: Total time managing care of this patient today ____ minutes.
--- NOTE | 2023-07-05 11:46 | PM.EVENT ---
Event Note Date of Service: 07/05/23 Event Note: Patient had a fall in her room on her back and claims that she hit her head. Her one-to-one observer had his back to her. Her vital signs are within normal range. She is angry that the nurses thought it maybe behavioral. She says that she is sore in the right occipital area. A hospitalist consult will be obtained. Some of her belongings were moved out of the room for now. Time Spent With Patient Time: Total time managing care of this patient today ____ minutes.
--- NOTE | 2023-07-05 16:52 | PC.NURSE ---
Pt was on 1:1 observation with no complaints of dizziness to nursing staff. Nurse in area at time reported that the patient lowered herself bottom first to the ground while patient observers back was turned. Pt reported dizziness and that she fell to the floor. square dance caller saw and cleared patient but ordered hospitalist consult to rule out medical cause. Pt privileges were suspended until consult completed to comply with pt behavioral plan that is already in place.
[2023-07-05] MEDS: Ondansetron ODT 4 MG TAB.RAPDIS TRANSLINGU (17:39)
[2023-07-05 18:00] VITALS: BP 95/55; PULSE 75; RESP 18; TEMP 36.2; O2SAT 90
--- NOTE | 2023-07-05 18:48 | PM.EVENT ---
Event Note Date of Service: 07/05/23 Event Note: Hospitalist consult placed for patient who had fall in her room with claimed head strike. Patient is on one-to-one observation but incident occurred when observe her had back to the patient. Patient claimed she had a near syncopal episode where she stood up, felt lightheaded and dizzy, and then fell, striking her head. Pt complains of right occipital pain at reported site of headstrike and lingering lightheadedness/dizziness with sitting or standing. Reports has had similar episodes every few weeks for the past 6-12 months. Orthostatics negative. Neurological exam unremarkable with no focal deficits noted. No scalp lesion, abrasion, or hematoma noted on examination. Will get CT of head to rule out any acute intracranial pathology. Repeat orthostatics in the morning, and encourage po intake of fluid. Acetaminophen for pain. Time Spent With Patient Time: Total time managing care of this patient today ____ minutes.
[2023-07-05] MEDS: Prazosin HCL 5 MG CAPSULE PO (21:58)
[2023-07-05] MEDS: traZODone HCL 100 MG TABLET 300 MG PO (21:59)
[2023-07-05] MEDS: NeoMY/Polymyx/Bacit/Ointment 14 GM Tube TOPICAL (22:01)
[2023-07-05] MEDS: Atorvastatin Calcium 20 MG TABLET PO (22:01)
[2023-07-05] MEDS: lamoTRIgine 25 MG TABLET PO (22:02)
[2023-07-05 23:03] LABS: Glucose, Whole Blood 123 mg/dL (60-115)
[2023-07-06] MEDS: Levothyroxine Sodium 75 MCG TABLET PO (06:37)
[2023-07-06 08:00] VITALS: BP 131/63; PULSE 78; RESP 18; TEMP 36.6; O2SAT 92
[2023-07-06 08:17] LABS: Glucose, Whole Blood 136 mg/dL (60-115)
[2023-07-06] MEDS: hydrOXYzine HCL 50 MG TABLET PO (08:25)
[2023-07-06] MEDS: Nicotine 21 MG PATCH.TD24 TRANSDERMA (08:25)
[2023-07-06] MEDS: Omeprazole 40 MG CAPSULE.DR PO ×2 (08:25→16:56)
[2023-07-06] MEDS: Magnesium Oxide 400 MG TABLET PO ×2 (08:25→16:56)
[2023-07-06] MEDS: Folic Acid 1 MG TABLET PO (08:27)
[2023-07-06] MEDS: clonazePAM 0.5 MG TABLET PO (08:27)
[2023-07-06] MEDS: OLANZapine 7.5 MG TABLET 15 MG PO (08:27)
[2023-07-06] MEDS: Thiamine HCL 100 MG TABLET PO (08:28)
[2023-07-06] MEDS: Multivitamin TABLET 1 TAB PO (08:28)
[2023-07-06] MEDS: metFORMIN HCl 500 MG TABLET PO (08:29)
[2023-07-06] MEDS: FLUoxetine HCl 20 MG CAPSULE 40 MG PO (08:29)
--- NOTE | 2023-07-06 09:53 | P.PNPSI_ITS ---
Subjective Subjective Date of Service: 07/06/23 Reason For Visit: Bipolar Disoder Unspecified Subjective Notes: Conditional Voluntary Interim History: Patient was seen and discussed in rounds today. Records and plans were reviewed. She did have a fall yesterday and was evaluated by the hospitalist with no injuries including a CT scan which was done. She has been on one-to-one still. She continues to be guarded, labile. No complaints or side effects other than pertaining to her care and restrictions which I tried to explain to her being secondary to her behavioral issues. Review of Systems Review of Systems Yes all other systems are reviewed and are negative Mental Status Exam Mental Status Exam Narrative: In today's visit she is alert, oriented and pleasant. Normal speech. No eye contact. Affect is appropriate and constricted. No active SI. Some auditory hallucinations reported. Cognitively intact. Judgment marginally intact Diagnostics Vital Signs (24Hr): Vital Signs - 24 hr 07/05/23 18:00 07/06/23 08:00 Temperature 97.1 F 97.8 F Pulse Rate 75 78 Respiratory Rate 18 18 Blood Pressure 95/55 L 131/63 Pulse Oximetry 90 L 92 Oxygen Delivery Method Room Air Room Air BMI result Body Mass Index 40.8 Labs 07/02/23 08:32 07/02/23 08:32 Labs: Laboratory Results - last 48 hr 07/04/23 07/04/23 07/05/23 10:13 22:30 22:59 POC Glucose 134 H 121 H 123 H 07/06/23 08:12 POC Glucose 136 H Imaging Radiology Impressions: ITS Impressions Elbow X-Ray 07/02/23 22:20 IMPRESSION: Unremarkable right hand Unremarkable right knee exam. Unremarkable right elbow exam. Hand X-Ray 07/02/23 22:20 IMPRESSION: Unremarkable right hand Unremarkable right knee exam. Unremarkable right elbow exam. Knee X-Ray 07/02/23 22:20 IMPRESSION: Unremarkable right hand Unremarkable right knee exam. Unremarkable right elbow exam. Cervical Spine CT 07/02/23 22:36 IMPRESSION: 1. No acute intracranial abnormality. 2. Within the limitations of motion artifact, no evidence of acute fracture or traumatic malalignment of the cervical spine. Head CT 07/02/23 22:36 IMPRESSION: 1. No acute intracranial abnormality. 2. Within the limitations of motion artifact, no evidence of acute fracture or traumatic malalignment of the cervical spine. Shoulder X-Ray 07/03/23 09:57 IMPRESSION: No acute bony abnormality. Head CT 07/05/23 19:41 IMPRESSION: No evidence of acute intracranial hemorrhage or edematous territorial infarction. Medications Medications Current Medications Acetaminophen (Acetaminophen 325 Mg Tablet) 975 mg PO Q6H PRN PRN Reason: Headache/Pain Mild Scale (1-3) Last Admin: 07/03/23 05:41 Dose: 975 mg Al Hydroxide/Mg Hydroxide (Magnesium Hydrox/Alum Hydrox 30 Ml Oral.Susp) 30 ml PO Q6H PRN PRN Reason: Heartburn/Nausea Atorvastatin Calcium (Atorvastatin Calcium 20 Mg Tablet) 20 mg PO BEDTIME [facility] Last Admin: 07/05/23 22:01 Dose: 20 mg Celecoxib (Celecoxib 200 Mg Capsule) 200 mg PO BID [facility] Last Admin: 07/05/23 22:03 Dose: 200 mg Clonazepam (Clonazepam 1 Mg Tablet) 1 mg PO BID PRN PRN Reason: anxiety Last Admin: 07/04/23 21:50 Dose: 1 mg Clonazepam (Clonazepam 0.5 Mg Tablet) 0.5 mg PO DAILY PRN PRN Reason: Anxiety Last Admin: 07/06/23 08:27 Dose: 0.5 mg Fluoxetine HCl (Fluoxetine Hcl 20 Mg Capsule) 40 mg PO DAILY [facility] Last Admin: 07/06/23 08:29 Dose: 40 mg Fluticasone Propionate (Fluticasone Propionate Nasal 16 Gm [place]) 1 spray NOSTRIL-B DAILY [facility] Last Admin: 07/05/23 08:47 Dose: 1 spray Fluticasone/Vilanterol (Fluticasone/Vilanterol 100/25 Blst.W.Dev) 1 puff INHALE RDAILY [facility] Last Admin: 07/05/23 09:26 Dose: Not Given Folic Acid (Folic Acid 1 Mg Tablet) 1 mg PO DAILY [facility] Last Admin: 07/06/23 08:27 Dose: 1 mg Hydroxyzine HCl (Hydroxyzine Hcl 50 Mg Tablet) 50 mg PO Q8H PRN PRN Reason: Anxiety Last Admin: 07/06/23 08:25 Dose: 50 mg Lamotrigine (Lamotrigine 25 Mg Tablet) 25 mg PO BEDTIME [facility] Last Admin: 07/05/23 22:02 Dose: 25 mg Levothyroxine Sodium (Levothyroxine Sodium 75 Mcg Tablet) 75 mcg PO DAILY@0600 [facility] Last Admin: 07/06/23 06:37 Dose: 75 mcg Magnesium Hydroxide (Milk Of Magnesia 30 Ml Oral.Susp) 30 ml PO DAILY PRN PRN Reason: Constipation Magnesium Oxide (Magnesium Oxide 400 Mg Tablet) 400 mg PO BIDPC [facility] Last Admin: 07/05/23 17:39 Dose: 400 mg Metformin HCl (Metformin Hcl 500 Mg Tablet) 500 mg PO DAILY [facility] Last Admin: 07/06/23 08:29 Dose: 500 mg Multivitamins/Vitamin C (Multivitamin Tablet) 1 tab PO DAILY [facility] Last Admin: 07/06/23 08:28 Dose: 1 tab Neomycin/Polymyxin/Bacitracin (Neomy/Polymyx/Bacit/Ointment 14 Gm Tube) 1 gm TOPICAL BID [facility]; Protocol Last Admin: 07/05/23 22:01 Dose: 1 gm Nicotine (Nicotine 21 Mg Patch.Td24) 21 mg TRANSDERMA DAILY [facility] Last Admin: 07/06/23 08:25 Dose: 21 mg Nicotine Polacrilex (Nicotine Polacrilex 2 Mg Gum) 4 mg BUCCAL Q2H PRN PRN Reason: Nicotine Cravings Olanzapine (Olanzapine 5 Mg Tablet) 5 mg PO TID PRN PRN Reason: agitation Last Admin: 07/02/23 17:42 Dose: 5 mg Olanzapine (Olanzapine 7.5 Mg Tablet) 15 mg PO DAILY [facility] Last Admin: 07/06/23 08:27 Dose: 15 mg Olanzapine (Olanzapine 10 Mg Tablet) 20 mg PO BEDTIME [facility] Last Admin: 07/05/23 22:03 Dose: 20 mg Omeprazole (Omeprazole 40 Mg Capsule.Dr) 40 mg PO BID@0630,1630 [facility] Last Admin: 07/06/23 08:25 Dose: 40 mg Ondansetron HCl (Ondansetron Odt 4 Mg Tab.Rapdis) 4 mg TRANSLINGU Q6H PRN PRN Reason: Nausea Last Admin: 07/05/23 17:39 Dose: 4 mg Prazosin HCl (Prazosin Hcl 5 Mg Capsule) 5 mg PO BEDTIME [facility]; Protocol Last Admin: 07/05/23 21:58 Dose: 5 mg Thiamine HCl (Thiamine Hcl 100 Mg Tablet) 100 mg PO DAILY [facility] Last Admin: 07/06/23 08:28 Dose: 100 mg Topiramate (Topiramate 100 Mg Tablet) 100 mg PO BID [facility] Last Admin: 07/05/23 22:02 Dose: 100 mg Trazodone HCl (Trazodone Hcl 100 Mg Tablet) 300 mg PO BEDTIME [facility] Last Admin: 07/05/23 22:03 Dose: 300 mg Allergies Allergies Allergy/AdvReac Type Severity Reaction Status Date / Time amoxicillin Allergy Unknown Unknown Verified 07/01/23 01:28 bupropion [From Wellbutrin] Allergy Unknown Unknown Verified 07/01/23 01:28 zolpidem [From Ambien] Allergy Unknown Unknown Verified 07/01/23 01:26 acetaminophen [From Vicodin] Allergy Unknown Verified 07/01/23 04:17 aspirin Allergy Unknown Verified 07/01/23 04:17 carbamazepine [From Tegretol] Allergy Unknown Verified 07/01/23 04:17 chlorpromazine Allergy Unknown Verified 07/01/23 04:17 [From Thorazine] ciprofloxacin [From Cipro] Allergy Unknown Verified 07/01/23 04:17 clindamycin Allergy Unknown Verified 07/01/23 04:17 clozapine [From Clozaril] Allergy Unknown Verified 07/01/23 04:17 erythromycin base Allergy Unknown Verified 07/01/23 04:17 haloperidol Allergy Unknown Verified 07/01/23 04:17 hydrocodone [From Vicodin] Allergy Unknown Verified 07/01/23 04:17 hydromorphone [From Dilaudid] Allergy Unknown Verified 07/01/23 04:17 meperidine [From Demerol] Allergy Unknown Verified 07/01/23 04:17 metoclopramide [From Reglan] Allergy Unknown Verified 07/01/23 04:17 NSAIDS (Non-Steroidal Allergy Unknown Verified 07/01/23 04:17 Anti-Inflamma oxcarbazepine Allergy Unknown Verified 07/01/23 04:17 paliperidone Allergy Unknown Verified 07/01/23 04:17 Penicillins Allergy Unknown Verified 07/01/23 04:17 prednisone Allergy Unknown Verified 07/01/23 04:17 pregabalin [From Lyrica] Allergy Unknown Verified 07/01/23 04:17 sertraline [From Zoloft] Allergy Unknown Verified 07/01/23 04:17 shellfish derived Allergy Unknown Verified 07/01/23 04:17 Sulfa (Sulfonamide Allergy Unknown Verified 07/01/23 10:19 Antibiotics) tetracycline Allergy Unknown Verified 07/01/23 04:17 venlafaxine Allergy Unknown Verified 07/01/23 04:17 lithium AdvReac Severe toxicity Verified 07/01/23 17:28 divalproex sodium AdvReac Unknown Unknown Verified 07/01/23 17:28 [From Depakote] iodine contrast Allergy Unknown Unknown Uncoded 07/01/23 10:19 Assessment & Plan Assessment & Plan (1) PTSD (post-traumatic stress disorder): Status: Acute Code(s): F43.10 - Post-traumatic stress disorder, unspecified (2) Bipolar disorder: Status: Acute Code(s): F31.9 - Bipolar disorder, unspecified Assessment and Plan: 07/03/23 Pt will consider proposed changes from her OP prescriber and will let us know. Decrease Klonopin from 3 mg daily to 2.5 mg daily prn. Pt agreed to this change. 07/04:pt continues on 1:1. Pt reports feeling anxious and depressed ; pt stated I just want to leave and go to a [facility] . pt reports auditory hallucinations that tell me I'm no good but they are not that bad . denies SI/HI/VH. Continue current tx plan. 07/05/23: Continue current regimen and plans 07/06/2023: Continue current regimen and plans Plan Reason for continued inpatient stay Substantial Risk for: inability to function and med/psych decompensation Time Spent With Patient Time: Total time managing care of this patient today ____ minutes.
[2023-07-06] MEDS: Celecoxib 200 MG CAPSULE PO ×2 (12:19→21:36)
[2023-07-06] MEDS: Topiramate 100 MG TABLET PO ×2 (12:20→21:37)
[2023-07-06] MEDS: clonazePAM 1 MG TABLET PO (12:22)
[2023-07-06] MEDS: Ondansetron ODT 4 MG TAB.RAPDIS TRANSLINGU (16:55)
[2023-07-06 18:00] VITALS: BP 111/70; PULSE 95; RESP 18; TEMP 36.6; O2SAT 94
[2023-07-06 21:30] LABS: Glucose, Whole Blood 109 mg/dL (60-115)
[2023-07-06] MEDS: OLANZapine 10 MG TABLET 20 MG PO ×2 (21:33→21:42)
[2023-07-06] MEDS: Atorvastatin Calcium 20 MG TABLET PO (21:36)
[2023-07-06] MEDS: Prazosin HCL 5 MG CAPSULE PO (21:37)
[2023-07-06] MEDS: lamoTRIgine 25 MG TABLET PO (21:37)
[2023-07-06] MEDS: traZODone HCL 100 MG TABLET 300 MG PO ×2 (21:39→21:42)
[2023-07-07] MEDS: Levothyroxine Sodium 75 MCG TABLET PO (05:36)
[2023-07-07] MEDS: Omeprazole 40 MG CAPSULE.DR PO ×2 (05:36→17:26)
[2023-07-07 08:10] VITALS: BP 112/62; PULSE 82; RESP 16; TEMP 36.2; O2SAT 99
[2023-07-07 08:12] LABS: Glucose, Whole Blood 124 mg/dL (60-115)
[2023-07-07] MEDS: metFORMIN HCl 500 MG TABLET PO (08:40)
[2023-07-07] MEDS: Fluticasone Propionate Nasal 16 GM SPRAY 1 SPRAY NOSTRIL-B (08:40)
[2023-07-07] MEDS: Thiamine HCL 100 MG TABLET PO (08:40)
[2023-07-07] MEDS: Celecoxib 200 MG CAPSULE PO ×2 (08:40→21:58)
[2023-07-07] MEDS: Topiramate 100 MG TABLET PO ×2 (08:40→22:00)
[2023-07-07] MEDS: FLUoxetine HCl 20 MG CAPSULE 40 MG PO (08:40)
[2023-07-07] MEDS: Magnesium Oxide 400 MG TABLET PO ×2 (08:40→17:26)
[2023-07-07] MEDS: Folic Acid 1 MG TABLET PO (08:41)
[2023-07-07] MEDS: Multivitamin TABLET 1 TAB PO (08:41)
[2023-07-07] MEDS: OLANZapine 7.5 MG TABLET 15 MG PO (08:41)
[2023-07-07] MEDS: clonazePAM 1 MG TABLET PO (09:15)
--- NOTE | 2023-07-07 12:09 | P.PNPSI_ITS ---
Subjective Subjective Date of Service: 07/07/23 Reason For Visit: Bipolar Disoder Unspecified Subjective Notes: Conditional Voluntary and 3 Day Healthcare Proxy: No Guardianship: No Medical Problems Affecting Mental Status: No Interim History: Demanding discharge. I am better. We are attempting to schedule a provider meeting prior to discharge. Pt did submit a TDN Multiple calls from to discharge her today. Review of med recs made from OP team last week. Pt agrees to [place] upon discharge. Declines [place]. Has further tapered Klonopin to 2 mg daily. We have asked pt to stay until a team mtg with her OP providers is held. Medication Compliance: Yes Side effects from medications: No Attending Groups: Intermittent Review of Systems Acute medical concerns: No Medical Review of Systems: unchanged Review of Systems Review of Systems Yes all other systems are reviewed and are negative Mental Status Exam Mental Status Exam Patient Appearance: Appropriate Patient Orientation: Person, Place, Time and Situation Level of Consciousness: Alert Patient Behavior: Talkative and Good Eye Contact Mood Description: Labile Affect Description: Labile Patient Cognition Impaired: No Ability to Follow Directions: Good Speech Pattern: Spontaneous Speech Memory Description: Intact Hallucinations: None Perceptual Disturbances: Depersonalization and Derealization Thought Process: Distracted Thought Content: positive for Perseveration Depressive Symptoms: Thoughts of /Suicide (denies) Judgement: Fair Diagnostics Vital Signs (24Hr): Vital Signs - 24 hr 07/06/23 18:00 07/07/23 08:10 Temperature 97.8 F 97.2 F Pulse Rate 95 82 Respiratory Rate 18 16 Blood Pressure 111/70 112/62 Pulse Oximetry 94 99 Oxygen Delivery Method Room Air Room Air BMI result Body Mass Index 40.8 Labs 07/02/23 08:32 07/02/23 08:32 Labs: Laboratory Results - last 48 hr 07/05/23 07/06/23 07/06/23 22:59 08:12 21:26 POC Glucose 123 H 136 H 109 07/07/23 08:09 POC Glucose 124 H Imaging Radiology Impressions: ITS Impressions Elbow X-Ray 07/02/23 22:20 IMPRESSION: Unremarkable right hand Unremarkable right knee exam. Unremarkable right elbow exam. Hand X-Ray 07/02/23 22:20 IMPRESSION: Unremarkable right hand Unremarkable right knee exam. Unremarkable right elbow exam. Knee X-Ray 07/02/23 22:20 IMPRESSION: Unremarkable right hand Unremarkable right knee exam. Unremarkable right elbow exam. Cervical Spine CT 07/02/23 22:36 IMPRESSION: 1. No acute intracranial abnormality. 2. Within the limitations of motion artifact, no evidence of acute fracture or traumatic malalignment of the cervical spine. Head CT 07/02/23 22:36 IMPRESSION: 1. No acute intracranial abnormality. 2. Within the limitations of motion artifact, no evidence of acute fracture or traumatic malalignment of the cervical spine. Shoulder X-Ray 07/03/23 09:57 IMPRESSION: No acute bony abnormality. Head CT 07/05/23 19:41 IMPRESSION: No evidence of acute intracranial hemorrhage or edematous territorial infarction. Medications Medications Current Medications Acetaminophen (Acetaminophen 325 Mg Tablet) 975 mg PO Q6H PRN PRN Reason: Headache/Pain Mild Scale (1-3) Last Admin: 07/03/23 05:41 Dose: 975 mg Al Hydroxide/Mg Hydroxide (Magnesium Hydrox/Alum Hydrox 30 Ml Oral.Susp) 30 ml PO Q6H PRN PRN Reason: Heartburn/Nausea Atorvastatin Calcium (Atorvastatin Calcium 20 Mg Tablet) 20 mg PO BEDTIME [facility] Last Admin: 07/06/23 21:36 Dose: 20 mg Celecoxib (Celecoxib 200 Mg Capsule) 200 mg PO BID [facility] Last Admin: 07/07/23 08:40 Dose: 200 mg Clonazepam (Clonazepam 1 Mg Tablet) 1 mg PO BID PRN PRN Reason: anxiety Last Admin: 07/07/23 09:15 Dose: 1 mg Fluoxetine HCl (Fluoxetine Hcl 20 Mg Capsule) 40 mg PO DAILY [facility] Last Admin: 07/07/23 08:40 Dose: 40 mg Fluticasone Propionate (Fluticasone Propionate Nasal 16 Gm [place]) 1 spray NOSTRIL-B DAILY [facility] Last Admin: 07/07/23 08:40 Dose: 1 spray Fluticasone/Vilanterol (Fluticasone/Vilanterol 100/25 Blst.W.Dev) 1 puff INHALE RDAILY [facility] Last Admin: 07/07/23 08:47 Dose: Not Given Folic Acid (Folic Acid 1 Mg Tablet) 1 mg PO DAILY [facility] Last Admin: 07/07/23 08:41 Dose: 1 mg Hydroxyzine HCl (Hydroxyzine Hcl 50 Mg Tablet) 50 mg PO Q8H PRN PRN Reason: Anxiety Last Admin: 07/06/23 08:25 Dose: 50 mg Lamotrigine (Lamotrigine 25 Mg Tablet) 25 mg PO BEDTIME [facility] Last Admin: 07/06/23 21:37 Dose: 25 mg Levothyroxine Sodium (Levothyroxine Sodium 75 Mcg Tablet) 75 mcg PO DAILY@0600 [facility] Last Admin: 07/07/23 05:36 Dose: 75 mcg Magnesium Hydroxide (Milk Of Magnesia 30 Ml Oral.Susp) 30 ml PO DAILY PRN PRN Reason: Constipation Magnesium Oxide (Magnesium Oxide 400 Mg Tablet) 400 mg PO BIDPC [facility] Last Admin: 07/07/23 08:40 Dose: 400 mg Metformin HCl (Metformin Hcl 500 Mg Tablet) 500 mg PO DAILY [facility] Last Admin: 07/07/23 08:40 Dose: 500 mg Multivitamins/Vitamin C (Multivitamin Tablet) 1 tab PO DAILY [facility] Last Admin: 07/07/23 08:41 Dose: 1 tab Neomycin/Polymyxin/Bacitracin (Neomy/Polymyx/Bacit/Ointment 14 Gm Tube) 1 gm TOPICAL BID [facility]; Protocol Last Admin: 07/07/23 09:16 Dose: Not Given Nicotine (Nicotine 21 Mg Patch.Td24) 21 mg TRANSDERMA DAILY [facility] Last Admin: 07/07/23 09:09 Dose: Not Given Nicotine Polacrilex (Nicotine Polacrilex 2 Mg Gum) 4 mg BUCCAL Q2H PRN PRN Reason: Nicotine Cravings Olanzapine (Olanzapine 5 Mg Tablet) 5 mg PO TID PRN PRN Reason: agitation Last Admin: 07/02/23 17:42 Dose: 5 mg Olanzapine (Olanzapine 7.5 Mg Tablet) 15 mg PO DAILY [facility] Last Admin: 07/07/23 08:41 Dose: 15 mg Olanzapine (Olanzapine 10 Mg Tablet) 20 mg PO BEDTIME [facility] Last Admin: 07/06/23 21:42 Dose: 20 mg Omeprazole (Omeprazole 40 Mg Capsule.Dr) 40 mg PO BID@0630,1630 [facility] Last Admin: 07/07/23 05:36 Dose: 40 mg Ondansetron HCl (Ondansetron Odt 4 Mg Tab.Rapdis) 4 mg TRANSLINGU Q6H PRN PRN Reason: Nausea Last Admin: 07/06/23 16:55 Dose: 4 mg Prazosin HCl (Prazosin Hcl 5 Mg Capsule) 5 mg PO BEDTIME [facility]; Protocol Last Admin: 07/06/23 21:37 Dose: 5 mg Thiamine HCl (Thiamine Hcl 100 Mg Tablet) 100 mg PO DAILY [facility] Last Admin: 07/07/23 08:40 Dose: 100 mg Topiramate (Topiramate 100 Mg Tablet) 100 mg PO BID [facility] Last Admin: 07/07/23 08:40 Dose: 100 mg Trazodone HCl (Trazodone Hcl 100 Mg Tablet) 300 mg PO BEDTIME [facility] Last Admin: 07/06/23 21:42 Dose: 300 mg Allergies Allergies Allergy/AdvReac Type Severity Reaction Status Date / Time amoxicillin Allergy Unknown Unknown Verified 07/01/23 01:28 bupropion [From Wellbutrin] Allergy Unknown Unknown Verified 07/01/23 01:28 zolpidem [From Ambien] Allergy Unknown Unknown Verified 07/01/23 01:26 acetaminophen [From Vicodin] Allergy Unknown Verified 07/01/23 04:17 aspirin Allergy Unknown Verified 07/01/23 04:17 carbamazepine [From Tegretol] Allergy Unknown Verified 07/01/23 04:17 chlorpromazine Allergy Unknown Verified 07/01/23 04:17 [From Thorazine] ciprofloxacin [From Cipro] Allergy Unknown Verified 07/01/23 04:17 clindamycin Allergy Unknown Verified 07/01/23 04:17 clozapine [From Clozaril] Allergy Unknown Verified 07/01/23 04:17 erythromycin base Allergy Unknown Verified 07/01/23 04:17 haloperidol Allergy Unknown Verified 07/01/23 04:17 hydrocodone [From Vicodin] Allergy Unknown Verified 07/01/23 04:17 hydromorphone [From Dilaudid] Allergy Unknown Verified 07/01/23 04:17 meperidine [From Demerol] Allergy Unknown Verified 07/01/23 04:17 metoclopramide [From Reglan] Allergy Unknown Verified 07/01/23 04:17 NSAIDS (Non-Steroidal Allergy Unknown Verified 07/01/23 04:17 Anti-Inflamma oxcarbazepine Allergy Unknown Verified 07/01/23 04:17 paliperidone Allergy Unknown Verified 07/01/23 04:17 Penicillins Allergy Unknown Verified 07/01/23 04:17 prednisone Allergy Unknown Verified 07/01/23 04:17 pregabalin [From Lyrica] Allergy Unknown Verified 07/01/23 04:17 sertraline [From Zoloft] Allergy Unknown Verified 07/01/23 04:17 shellfish derived Allergy Unknown Verified 07/01/23 04:17 Sulfa (Sulfonamide Allergy Unknown Verified 07/01/23 10:19 Antibiotics) tetracycline Allergy Unknown Verified 07/01/23 04:17 venlafaxine Allergy Unknown Verified 07/01/23 04:17 lithium AdvReac Severe toxicity Verified 07/01/23 17:28 divalproex sodium AdvReac Unknown Unknown Verified 07/01/23 17:28 [From Depakote] iodine contrast Allergy Unknown Unknown Uncoded 07/01/23 10:19 Assessment & Plan Assessment & Plan (1) PTSD (post-traumatic stress disorder): Status: Acute Code(s): F43.10 - Post-traumatic stress disorder, unspecified (2) Bipolar disorder: Status: Acute Code(s): F31.9 - Bipolar disorder, unspecified Assessment and Plan: 07/03/23 Pt will consider proposed changes from her OP prescriber and will let us know. Decrease Klonopin from 3 mg daily to 2.5 mg daily prn. Pt agreed to this change. 07/04:pt continues on 1:1. Pt reports feeling anxious and depressed ; pt stated I just want to leave and go to a [facility] . pt reports auditory hallucinations that tell me I'm no good but they are not that bad . denies SI/HI/VH. Continue current tx plan. 07/05/23: Continue current regimen and plans 07/06/2023: Continue current regimen and plans 07/07/23: Continue current regime/plan Plan Patient educated on: medication risk/benefits Informed Consent: understands Reason for continued inpatient stay Substantial Risk for: rapid decompensation Time Spent With Patient Time: Total time managing care of this patient today ____ minutes.
--- NOTE | 2023-07-07 13:23 | PC.NURSE ---
pt signed a 3day notice 07/07/23. Up on 07/11/23 due to holiday. , SW, UR notified via email
--- NOTE | 2023-07-07 14:18 | PC.NURSE ---
pt received a package today from [facility]. The patient was transported to [facility] from [place] and they did not send 1 bag of her belongings. Packaged verified by TW and another nurse and noted to contain 8 shirts, 2 pajama dresses, 1 pair pajama pants, 1 sweatshirt w/ haley, 1 pair of headphones, 2 vapes, a cell phone and 1 ring. Also noted were 1 deodorant, 1 brush, perfume spray, and makup. Pt reports (and verified by chart) that [facility] also has $120 of hers, a wallet, ID, and credit cards. Those items were not sent. Pt instructed to contact security at [facility] post discharge to follow up on receiving those items back.
[2023-07-07] MEDS: traZODone HCL 100 MG TABLET 300 MG PO (21:45)
[2023-07-07] MEDS: OLANZapine 10 MG TABLET 20 MG PO (21:49)
[2023-07-07 21:50] VITALS: BP 90/53; PULSE 79; TEMP 36
[2023-07-07] MEDS: lamoTRIgine 25 MG TABLET PO (21:58)
[2023-07-07] MEDS: Atorvastatin Calcium 20 MG TABLET PO (21:58)
[2023-07-08] MEDS: Omeprazole 40 MG CAPSULE.DR PO ×2 (06:17→17:27)
[2023-07-08] MEDS: Levothyroxine Sodium 75 MCG TABLET PO (06:17)
[2023-07-08 08:15] LABS: Glucose, Whole Blood 136 mg/dL (60-115)
[2023-07-08 08:22] VITALS: BP 130/78; PULSE 90; RESP 16; TEMP 36.5; O2SAT 95
[2023-07-08] MEDS: Fluticasone Propionate Nasal 16 GM SPRAY 1 SPRAY NOSTRIL-B (08:33)
[2023-07-08] MEDS: Multivitamin TABLET 1 TAB PO (08:34)
[2023-07-08] MEDS: Topiramate 100 MG TABLET PO ×2 (08:34→19:26)
[2023-07-08] MEDS: metFORMIN HCl 500 MG TABLET PO (08:34)
[2023-07-08] MEDS: OLANZapine 7.5 MG TABLET 15 MG PO (08:34)
[2023-07-08] MEDS: Celecoxib 200 MG CAPSULE PO ×2 (08:34→19:19)
[2023-07-08] MEDS: Folic Acid 1 MG TABLET PO (08:34)
[2023-07-08] MEDS: Magnesium Oxide 400 MG TABLET PO ×2 (08:34→17:27)
[2023-07-08] MEDS: FLUoxetine HCl 20 MG CAPSULE 40 MG PO (08:34)
[2023-07-08] MEDS: Thiamine HCL 100 MG TABLET PO (08:34)
[2023-07-08] MEDS: hydrOXYzine HCL 50 MG TABLET PO ×2 (08:39→19:26)
[2023-07-08] MEDS: clonazePAM 1 MG TABLET PO ×2 (11:33→19:18)
[2023-07-08] MEDS: Acetaminophen 325 MG TABLET 975 MG PO (14:28)
[2023-07-08] MEDS: SUMAtriptan succinate 50 MG TABLET PO (17:27)
[2023-07-08 18:00] VITALS: BP 113/65; PULSE 66; RESP 18; TEMP 36.7; O2SAT 94
[2023-07-08] MEDS: OLANZapine 10 MG TABLET 20 MG PO (19:16)
[2023-07-08] MEDS: traZODone HCL 100 MG TABLET 300 MG PO (19:17)
[2023-07-08] MEDS: Atorvastatin Calcium 20 MG TABLET PO (19:18)
[2023-07-08] MEDS: lamoTRIgine 25 MG TABLET PO (19:18)
[2023-07-08] MEDS: Prazosin HCL 5 MG CAPSULE PO (19:19)
--- NOTE | 2023-07-08 19:53 | HO.PSYCHPN ---
Subjective Subjective Date of Service: 07/08/23 Reason For Visit: Bipolar Disoder Unspecified Subjective Notes: Conditional Voluntary and 3 Day (07/10/23) Healthcare Proxy: No Guardianship: No Medical Problems Affecting Mental Status: No Interim History: Pt asking for discharge today. Encouraged to remain for her team meeting on 07/09 and to complete her plan of care. She acknowledges precipitous discharge plans in the past, has filed a 3 day notice, and is trying to complete her stay which is difficult. Reports sx have decreased, she feels well and prepared to go home. Medication Compliance: Yes Side effects from medications: No Attending Groups: Yes Review of Systems Acute medical concerns: No Medical Review of Systems: unchanged Review of Systems Review of Systems Yes all other systems are reviewed and are negative Mental Status Exam Mental Status Exam Patient Appearance: Appropriate Patient Orientation: Person, Place, Time and Situation Level of Consciousness: Alert Patient Behavior: Talkative and Good Eye Contact Mood Description: Labile Affect Description: Labile Patient Cognition Impaired: No Ability to Follow Directions: Good Speech Pattern: Spontaneous Speech Memory Description: Intact Hallucinations: None Perceptual Disturbances: Depersonalization and Derealization Thought Process: Distracted Thought Content: positive for Perseveration Depressive Symptoms: Thoughts of /Suicide (denies) Judgement: Fair Diagnostics Vital Signs (24Hr): Vital Signs - 24 hr 07/07/23 21:50 07/08/23 08:22 Temperature 96.8 F 97.7 F Pulse Rate 79 90 Respiratory Rate 16 Blood Pressure 90/53 L 130/78 Pulse Oximetry 95 Oxygen Delivery Method Room Air BMI result Body Mass Index 40.8 Labs 07/02/23 08:32 07/09/23 10:10 Labs: Laboratory Results - last 48 hr 07/06/23 07/07/23 07/08/23 21:26 08:09 08:10 POC Glucose 109 124 H 136 H Imaging Radiology Impressions: ITS Impressions Elbow X-Ray 07/02/23 22:20 IMPRESSION: Unremarkable right hand Unremarkable right knee exam. Unremarkable right elbow exam. Hand X-Ray 07/02/23 22:20 IMPRESSION: Unremarkable right hand Unremarkable right knee exam. Unremarkable right elbow exam. Knee X-Ray 07/02/23 22:20 IMPRESSION: Unremarkable right hand Unremarkable right knee exam. Unremarkable right elbow exam. Cervical Spine CT 07/02/23 22:36 IMPRESSION: 1. No acute intracranial abnormality. 2. Within the limitations of motion artifact, no evidence of acute fracture or traumatic malalignment of the cervical spine. Head CT 07/02/23 22:36 IMPRESSION: 1. No acute intracranial abnormality. 2. Within the limitations of motion artifact, no evidence of acute fracture or traumatic malalignment of the cervical spine. Shoulder X-Ray 07/03/23 09:57 IMPRESSION: No acute bony abnormality. Head CT 07/05/23 19:41 IMPRESSION: No evidence of acute intracranial hemorrhage or edematous territorial infarction. Medications Medications Current Medications Acetaminophen (Acetaminophen 325 Mg Tablet) 975 mg PO Q6H PRN PRN Reason: Headache/Pain Mild Scale (1-3) Last Admin: 07/08/23 14:28 Dose: 975 mg Al Hydroxide/Mg Hydroxide (Magnesium Hydrox/Alum Hydrox 30 Ml Oral.Susp) 30 ml PO Q6H PRN PRN Reason: Heartburn/Nausea Atorvastatin Calcium (Atorvastatin Calcium 20 Mg Tablet) 20 mg PO BEDTIME [facility] Last Admin: 07/08/23 19:18 Dose: 20 mg Celecoxib (Celecoxib 200 Mg Capsule) 200 mg PO BID [facility] Last Admin: 07/08/23 19:19 Dose: 200 mg Clonazepam (Clonazepam 1 Mg Tablet) 1 mg PO BID PRN PRN Reason: anxiety Last Admin: 07/08/23 19:18 Dose: 1 mg Fluoxetine HCl (Fluoxetine Hcl 20 Mg Capsule) 40 mg PO DAILY [facility] Last Admin: 07/08/23 08:34 Dose: 40 mg Fluticasone Propionate (Fluticasone Propionate Nasal 16 Gm [place]) 1 spray NOSTRIL-B DAILY [facility] Last Admin: 07/08/23 08:33 Dose: 1 spray Fluticasone/Vilanterol (Fluticasone/Vilanterol 100/25 Blst.W.Dev) 1 puff INHALE RDAILY [facility] Last Admin: 07/08/23 08:35 Dose: Not Given Folic Acid (Folic Acid 1 Mg Tablet) 1 mg PO DAILY [facility] Last Admin: 07/08/23 08:34 Dose: 1 mg Hydroxyzine HCl (Hydroxyzine Hcl 50 Mg Tablet) 50 mg PO Q8H PRN PRN Reason: Anxiety Last Admin: 07/08/23 19:26 Dose: 50 mg Lamotrigine (Lamotrigine 25 Mg Tablet) 25 mg PO BEDTIME [facility] Last Admin: 07/08/23 19:18 Dose: 25 mg Levothyroxine Sodium (Levothyroxine Sodium 75 Mcg Tablet) 75 mcg PO DAILY@0600 [facility] Last Admin: 07/08/23 06:17 Dose: 75 mcg Magnesium Hydroxide (Milk Of Magnesia 30 Ml Oral.Susp) 30 ml PO DAILY PRN PRN Reason: Constipation Magnesium Oxide (Magnesium Oxide 400 Mg Tablet) 400 mg PO BIDPC [facility] Last Admin: 07/08/23 17:27 Dose: 400 mg Metformin HCl (Metformin Hcl 500 Mg Tablet) 500 mg PO DAILY [facility] Last Admin: 07/08/23 08:34 Dose: 500 mg Multivitamins/Vitamin C (Multivitamin Tablet) 1 tab PO DAILY [facility] Last Admin: 07/08/23 08:34 Dose: 1 tab Neomycin/Polymyxin/Bacitracin (Neomy/Polymyx/Bacit/Ointment 14 Gm Tube) 1 gm TOPICAL BID [facility]; Protocol Last Admin: 07/08/23 08:34 Dose: Not Given Nicotine (Nicotine 21 Mg Patch.Td24) 21 mg TRANSDERMA DAILY [facility] Last Admin: 07/08/23 13:31 Dose: Not Given Nicotine Polacrilex (Nicotine Polacrilex 2 Mg Gum) 4 mg BUCCAL Q2H PRN PRN Reason: Nicotine Cravings Olanzapine (Olanzapine 5 Mg Tablet) 5 mg PO TID PRN PRN Reason: agitation Last Admin: 07/02/23 17:42 Dose: 5 mg Olanzapine (Olanzapine 7.5 Mg Tablet) 15 mg PO DAILY [facility] Last Admin: 07/08/23 08:34 Dose: 15 mg Olanzapine (Olanzapine 10 Mg Tablet) 20 mg PO BEDTIME [facility] Last Admin: 07/08/23 19:16 Dose: 20 mg Omeprazole (Omeprazole 40 Mg Capsule.Dr) 40 mg PO BID@0630,1630 [facility] Last Admin: 07/08/23 17:27 Dose: 40 mg Ondansetron HCl (Ondansetron Odt 4 Mg Tab.Rapdis) 4 mg TRANSLINGU Q6H PRN PRN Reason: Nausea Last Admin: 07/06/23 16:55 Dose: 4 mg Prazosin HCl (Prazosin Hcl 5 Mg Capsule) 5 mg PO BEDTIME [facility]; Protocol Last Admin: 07/08/23 19:19 Dose: 5 mg Thiamine HCl (Thiamine Hcl 100 Mg Tablet) 100 mg PO DAILY [facility] Last Admin: 07/08/23 08:34 Dose: 100 mg Topiramate (Topiramate 100 Mg Tablet) 100 mg PO BID [facility] Last Admin: 07/08/23 19:26 Dose: 100 mg Trazodone HCl (Trazodone Hcl 100 Mg Tablet) 300 mg PO BEDTIME [facility] Last Admin: 07/08/23 19:17 Dose: 300 mg Allergies Allergies Allergy/AdvReac Type Severity Reaction Status Date / Time amoxicillin Allergy Unknown Unknown Verified 07/01/23 01:28 bupropion [From Wellbutrin] Allergy Unknown Unknown Verified 07/01/23 01:28 zolpidem [From Ambien] Allergy Unknown Unknown Verified 07/01/23 01:26 acetaminophen [From Vicodin] Allergy Unknown Verified 07/01/23 04:17 aspirin Allergy Unknown Verified 07/01/23 04:17 carbamazepine [From Tegretol] Allergy Unknown Verified 07/01/23 04:17 chlorpromazine Allergy Unknown Verified 07/01/23 04:17 [From Thorazine] ciprofloxacin [From Cipro] Allergy Unknown Verified 07/01/23 04:17 clindamycin Allergy Unknown Verified 07/01/23 04:17 clozapine [From Clozaril] Allergy Unknown Verified 07/01/23 04:17 erythromycin base Allergy Unknown Verified 07/01/23 04:17 haloperidol Allergy Unknown Verified 07/01/23 04:17 hydrocodone [From Vicodin] Allergy Unknown Verified 07/01/23 04:17 hydromorphone [From Dilaudid] Allergy Unknown Verified 07/01/23 04:17 meperidine [From Demerol] Allergy Unknown Verified 07/01/23 04:17 metoclopramide [From Reglan] Allergy Unknown Verified 07/01/23 04:17 NSAIDS (Non-Steroidal Allergy Unknown Verified 07/01/23 04:17 Anti-Inflamma oxcarbazepine Allergy Unknown Verified 07/01/23 04:17 paliperidone Allergy Unknown Verified 07/01/23 04:17 Penicillins Allergy Unknown Verified 07/01/23 04:17 prednisone Allergy Unknown Verified 07/01/23 04:17 pregabalin [From Lyrica] Allergy Unknown Verified 07/01/23 04:17 sertraline [From Zoloft] Allergy Unknown Verified 07/01/23 04:17 shellfish derived Allergy Unknown Verified 07/01/23 04:17 Sulfa (Sulfonamide Allergy Unknown Verified 07/01/23 10:19 Antibiotics) tetracycline Allergy Unknown Verified 07/01/23 04:17 venlafaxine Allergy Unknown Verified 07/01/23 04:17 lithium AdvReac Severe toxicity Verified 07/01/23 17:28 divalproex sodium AdvReac Unknown Unknown Verified 07/01/23 17:28 [From Depakote] iodine contrast Allergy Unknown Unknown Uncoded 07/01/23 10:19 Assessment & Plan Assessment & Plan (1) PTSD (post-traumatic stress disorder): Status: Acute Code(s): F43.10 - Post-traumatic stress disorder, unspecified (2) Bipolar disorder: Status: Acute Code(s): F31.9 - Bipolar disorder, unspecified Assessment and Plan: 07/03/23 Pt will consider proposed changes from her OP prescriber and will let us know. Decrease Klonopin from 3 mg daily to 2.5 mg daily prn. Pt agreed to this change. 07/04:pt continues on 1:1. Pt reports feeling anxious and depressed ; pt stated I just want to leave and go to a [facility] . pt reports auditory hallucinations that tell me I'm no good but they are not that bad . denies SI/HI/VH. Continue current tx plan. 07/05/23: Continue current regimen and plans 07/06/2023: Continue current regimen and plans 07/07/23: Continue current regime/plan 07/08/23 Continue current regime/plan Plan Patient educated on: therapeutic strategies Informed Consent: understands Reason for continued inpatient stay Substantial Risk for: rapid decompensation Time Spent With Patient Time: Total time managing care of this patient today ____ minutes.
[2023-07-08 22:18] LABS: Glucose, Whole Blood 113 mg/dL (60-115)
[2023-07-09 06:00] VITALS: BP 120/56; PULSE 90; RESP 18; TEMP 36.3; O2SAT 95
[2023-07-09] MEDS: Levothyroxine Sodium 75 MCG TABLET PO (06:20)
[2023-07-09] MEDS: Omeprazole 40 MG CAPSULE.DR PO ×2 (06:20→16:06)
[2023-07-09 06:52] LABS: Glucose, Whole Blood 115 mg/dL (60-115)
[2023-07-09] MEDS: Fluticasone Propionate Nasal 16 GM SPRAY 1 SPRAY NOSTRIL-B (08:14)
[2023-07-09] MEDS: clonazePAM 1 MG TABLET PO (08:14)
[2023-07-09] MEDS: metFORMIN HCl 500 MG TABLET PO (08:15)
[2023-07-09] MEDS: Folic Acid 1 MG TABLET PO (08:15)
[2023-07-09] MEDS: Topiramate 100 MG TABLET PO ×2 (08:15→19:34)
[2023-07-09] MEDS: Celecoxib 200 MG CAPSULE PO ×2 (08:15→19:35)
[2023-07-09] MEDS: Magnesium Oxide 400 MG TABLET PO ×2 (08:15→16:06)
[2023-07-09] MEDS: OLANZapine 7.5 MG TABLET 15 MG PO (08:15)
[2023-07-09] MEDS: Thiamine HCL 100 MG TABLET PO (08:16)
[2023-07-09] MEDS: Multivitamin TABLET 1 TAB PO (08:16)
[2023-07-09] MEDS: FLUoxetine HCl 20 MG CAPSULE 40 MG PO (08:16)
[2023-07-09 11:00] LABS: Creatinine Clr Calc Pharmacy 74.4; Estimated Glomerular Filt Rate 54
--- NOTE | 2023-07-09 13:00 | HO.PSYCHPN ---
Subjective Subjective Date of Service: 07/09/23 Reason For Visit: Bipolar Disoder Unspecified Subjective Notes: Conditional Voluntary and 3 Day Healthcare Proxy: No Guardianship: No Medical Problems Affecting Mental Status: No Interim History: Pt continues to request discharge. Team meeting held with her out patient providers and [facility] supports. Pt asked by team to hold to her commitment and discharge 07/10. Reports feeling safe, no SI, prepared to return to OP team. Team reports after the meeting pt with sx of SIBS-hitting L hand against the wall and the bed with bruising/edema-feeling scared to discharge. XRay ordered. Medication Compliance: Yes Side effects from medications: No Attending Groups: Yes Review of Systems Acute medical concerns: No Medical Review of Systems: unchanged Review of Systems Review of Systems Yes all other systems are reviewed and are negative Mental Status Exam Mental Status Exam Patient Appearance: Appropriate Patient Orientation: Person, Place, Time and Situation Level of Consciousness: Alert Patient Behavior: Talkative and Good Eye Contact Mood Description: Labile Affect Description: Labile Patient Cognition Impaired: No Ability to Follow Directions: Good Speech Pattern: Spontaneous Speech Memory Description: Intact Hallucinations: None Perceptual Disturbances: Depersonalization and Derealization Thought Process: Distracted Thought Content: positive for Perseveration Depressive Symptoms: Thoughts of /Suicide (denies) Judgement: Fair Diagnostics Vital Signs (24Hr): Vital Signs - 24 hr 07/08/23 18:00 07/09/23 06:00 Temperature 98.0 F 97.4 F Pulse Rate 66 90 Respiratory Rate 18 18 Blood Pressure 113/65 120/56 L Pulse Oximetry 94 95 Oxygen Delivery Method Room Air Room Air BMI result Body Mass Index 40.8 Labs 07/02/23 08:32 07/09/23 10:10 Labs: Laboratory Results - last 48 hr 07/08/23 07/08/23 07/09/23 08:10 22:14 06:21 Creatinine Estim Creat Clear Calc Estimated GFR POC Glucose 136 H 113 115 07/09/23 10:10 Creatinine 1.08 Estim Creat Clear Calc 74.4 Estimated GFR 54 POC Glucose Imaging Radiology Impressions: ITS Impressions Elbow X-Ray 07/02/23 22:20 IMPRESSION: Unremarkable right hand Unremarkable right knee exam. Unremarkable right elbow exam. Hand X-Ray 07/02/23 22:20 IMPRESSION: Unremarkable right hand Unremarkable right knee exam. Unremarkable right elbow exam. Knee X-Ray 07/02/23 22:20 IMPRESSION: Unremarkable right hand Unremarkable right knee exam. Unremarkable right elbow exam. Cervical Spine CT 07/02/23 22:36 IMPRESSION: 1. No acute intracranial abnormality. 2. Within the limitations of motion artifact, no evidence of acute fracture or traumatic malalignment of the cervical spine. Head CT 07/02/23 22:36 IMPRESSION: 1. No acute intracranial abnormality. 2. Within the limitations of motion artifact, no evidence of acute fracture or traumatic malalignment of the cervical spine. Shoulder X-Ray 07/03/23 09:57 IMPRESSION: No acute bony abnormality. Head CT 07/05/23 19:41 IMPRESSION: No evidence of acute intracranial hemorrhage or edematous territorial infarction. Medications Medications Current Medications Acetaminophen (Acetaminophen 325 Mg Tablet) 975 mg PO Q6H PRN PRN Reason: Headache/Pain Mild Scale (1-3) Last Admin: 07/08/23 14:28 Dose: 975 mg Al Hydroxide/Mg Hydroxide (Magnesium Hydrox/Alum Hydrox 30 Ml Oral.Susp) 30 ml PO Q6H PRN PRN Reason: Heartburn/Nausea Atorvastatin Calcium (Atorvastatin Calcium 20 Mg Tablet) 20 mg PO BEDTIME [facility] Last Admin: 07/08/23 19:18 Dose: 20 mg Celecoxib (Celecoxib 200 Mg Capsule) 200 mg PO BID [facility] Last Admin: 07/09/23 08:15 Dose: 200 mg Clonazepam (Clonazepam 1 Mg Tablet) 1 mg PO BID PRN PRN Reason: anxiety Last Admin: 07/09/23 08:14 Dose: 1 mg Fluoxetine HCl (Fluoxetine Hcl 20 Mg Capsule) 40 mg PO DAILY [facility] Last Admin: 07/09/23 08:16 Dose: 40 mg Fluticasone Propionate (Fluticasone Propionate Nasal 16 Gm [place]) 1 spray NOSTRIL-B DAILY [facility] Last Admin: 07/09/23 08:14 Dose: 1 spray Fluticasone/Vilanterol (Fluticasone/Vilanterol 100/25 Blst.W.Dev) 1 puff INHALE RDAILY [facility] Last Admin: 07/09/23 08:14 Dose: Not Given Folic Acid (Folic Acid 1 Mg Tablet) 1 mg PO DAILY [facility] Last Admin: 07/09/23 08:15 Dose: 1 mg Hydroxyzine HCl (Hydroxyzine Hcl 50 Mg Tablet) 50 mg PO Q8H PRN PRN Reason: Anxiety Last Admin: 07/08/23 19:26 Dose: 50 mg Lamotrigine (Lamotrigine 25 Mg Tablet) 25 mg PO BEDTIME [facility] Last Admin: 07/08/23 19:18 Dose: 25 mg Levothyroxine Sodium (Levothyroxine Sodium 75 Mcg Tablet) 75 mcg PO DAILY@0600 [facility] Last Admin: 07/09/23 06:20 Dose: 75 mcg Magnesium Hydroxide (Milk Of Magnesia 30 Ml Oral.Susp) 30 ml PO DAILY PRN PRN Reason: Constipation Magnesium Oxide (Magnesium Oxide 400 Mg Tablet) 400 mg PO BIDPC [facility] Last Admin: 07/09/23 08:15 Dose: 400 mg Metformin HCl (Metformin Hcl 500 Mg Tablet) 500 mg PO DAILY [facility] Last Admin: 07/09/23 08:15 Dose: 500 mg Multivitamins/Vitamin C (Multivitamin Tablet) 1 tab PO DAILY [facility] Last Admin: 07/09/23 08:16 Dose: 1 tab Neomycin/Polymyxin/Bacitracin (Neomy/Polymyx/Bacit/Ointment 14 Gm Tube) 1 gm TOPICAL BID [facility]; Protocol Last Admin: 07/09/23 08:14 Dose: Not Given Nicotine (Nicotine 21 Mg Patch.Td24) 21 mg TRANSDERMA DAILY [facility] Last Admin: 07/09/23 08:15 Dose: Not Given Nicotine Polacrilex (Nicotine Polacrilex 2 Mg Gum) 4 mg BUCCAL Q2H PRN PRN Reason: Nicotine Cravings Olanzapine (Olanzapine 5 Mg Tablet) 5 mg PO TID PRN PRN Reason: agitation Last Admin: 07/02/23 17:42 Dose: 5 mg Olanzapine (Olanzapine 7.5 Mg Tablet) 15 mg PO DAILY [facility] Last Admin: 07/09/23 08:15 Dose: 15 mg Olanzapine (Olanzapine 10 Mg Tablet) 20 mg PO BEDTIME [facility] Last Admin: 07/08/23 19:16 Dose: 20 mg Omeprazole (Omeprazole 40 Mg Capsule.Dr) 40 mg PO BID@0630,1630 [facility] Last Admin: 07/09/23 06:20 Dose: 40 mg Ondansetron HCl (Ondansetron Odt 4 Mg Tab.Rapdis) 4 mg TRANSLINGU Q6H PRN PRN Reason: Nausea Last Admin: 07/06/23 16:55 Dose: 4 mg Prazosin HCl (Prazosin Hcl 5 Mg Capsule) 5 mg PO BEDTIME [facility]; Protocol Last Admin: 07/08/23 19:19 Dose: 5 mg Thiamine HCl (Thiamine Hcl 100 Mg Tablet) 100 mg PO DAILY [facility] Last Admin: 07/09/23 08:16 Dose: 100 mg Topiramate (Topiramate 100 Mg Tablet) 100 mg PO BID [facility] Last Admin: 07/09/23 08:15 Dose: 100 mg Trazodone HCl (Trazodone Hcl 100 Mg Tablet) 300 mg PO BEDTIME [facility] Last Admin: 07/08/23 19:17 Dose: 300 mg Allergies Allergies Allergy/AdvReac Type Severity Reaction Status Date / Time amoxicillin Allergy Unknown Unknown Verified 07/01/23 01:28 bupropion [From Wellbutrin] Allergy Unknown Unknown Verified 07/01/23 01:28 zolpidem [From Ambien] Allergy Unknown Unknown Verified 07/01/23 01:26 acetaminophen [From Vicodin] Allergy Unknown Verified 07/01/23 04:17 aspirin Allergy Unknown Verified 07/01/23 04:17 carbamazepine [From Tegretol] Allergy Unknown Verified 07/01/23 04:17 chlorpromazine Allergy Unknown Verified 07/01/23 04:17 [From Thorazine] ciprofloxacin [From Cipro] Allergy Unknown Verified 07/01/23 04:17 clindamycin Allergy Unknown Verified 07/01/23 04:17 clozapine [From Clozaril] Allergy Unknown Verified 07/01/23 04:17 erythromycin base Allergy Unknown Verified 07/01/23 04:17 haloperidol Allergy Unknown Verified 07/01/23 04:17 hydrocodone [From Vicodin] Allergy Unknown Verified 07/01/23 04:17 hydromorphone [From Dilaudid] Allergy Unknown Verified 07/01/23 04:17 meperidine [From Demerol] Allergy Unknown Verified 07/01/23 04:17 metoclopramide [From Reglan] Allergy Unknown Verified 07/01/23 04:17 NSAIDS (Non-Steroidal Allergy Unknown Verified 07/01/23 04:17 Anti-Inflamma oxcarbazepine Allergy Unknown Verified 07/01/23 04:17 paliperidone Allergy Unknown Verified 07/01/23 04:17 Penicillins Allergy Unknown Verified 07/01/23 04:17 prednisone Allergy Unknown Verified 07/01/23 04:17 pregabalin [From Lyrica] Allergy Unknown Verified 07/01/23 04:17 sertraline [From Zoloft] Allergy Unknown Verified 07/01/23 04:17 shellfish derived Allergy Unknown Verified 07/01/23 04:17 Sulfa (Sulfonamide Allergy Unknown Verified 07/01/23 10:19 Antibiotics) tetracycline Allergy Unknown Verified 07/01/23 04:17 venlafaxine Allergy Unknown Verified 07/01/23 04:17 lithium AdvReac Severe toxicity Verified 07/01/23 17:28 divalproex sodium AdvReac Unknown Unknown Verified 07/01/23 17:28 [From Depakote] iodine contrast Allergy Unknown Unknown Uncoded 07/01/23 10:19 Assessment & Plan Assessment & Plan (1) PTSD (post-traumatic stress disorder): Status: Acute Code(s): F43.10 - Post-traumatic stress disorder, unspecified (2) Bipolar disorder: Status: Acute Code(s): F31.9 - Bipolar disorder, unspecified Assessment and Plan: 07/03/23 Pt will consider proposed changes from her OP prescriber and will let us know. Decrease Klonopin from 3 mg daily to 2.5 mg daily prn. Pt agreed to this change. 07/04:pt continues on 1:1. Pt reports feeling anxious and depressed ; pt stated I just want to leave and go to a [facility] . pt reports auditory hallucinations that tell me I'm no good but they are not that bad . denies SI/HI/VH. Continue current tx plan. 07/05/23: Continue current regimen and plans 07/06/2023: Continue current regimen and plans 07/07/23: Continue current regime/plan 07/09/23: Discharge on a three day notice 07/10. Pt re-thinking this plan this evening with SIBS-she could retract if she chooses Per team this is an established pattern that she is working on making changes Continue to plan discharge with potential for her to change her mind. Plan Patient educated on: therapeutic strategies Informed Consent: understands Reason for continued inpatient stay Substantial Risk for: rapid decompensation Time Spent With Patient Time: Total time managing care of this patient today ____ minutes.
[2023-07-09] MEDS: clonazePAM 0.5 MG TABLET PO ×2 (15:30→19:35)
[2023-07-09] MEDS: hydrOXYzine HCL 50 MG TABLET PO (16:22)
[2023-07-09] MEDS: Nicotine 21 MG PATCH.TD24 TRANSDERMA (16:34)
[2023-07-09] MEDS: Acetaminophen 325 MG TABLET 975 MG PO (18:50)
[2023-07-09] MEDS: Ondansetron ODT 4 MG TAB.RAPDIS TRANSLINGU (18:51)
[2023-07-09] MEDS: OLANZapine 10 MG TABLET 20 MG PO (19:34)
[2023-07-09] MEDS: traZODone HCL 100 MG TABLET 300 MG PO (19:34)
[2023-07-09] MEDS: Atorvastatin Calcium 20 MG TABLET PO (19:35)
[2023-07-09] MEDS: lamoTRIgine 25 MG TABLET PO (19:35)
[2023-07-09] MEDS: Prazosin HCL 5 MG CAPSULE PO (19:35)
[2023-07-09 19:50] VITALS: BP 138/64; PULSE 84; RESP 18; TEMP 36.6; O2SAT 97
[2023-07-09 19:55] LABS: Glucose, Whole Blood 117 mg/dL (60-115)
[2023-07-10] MEDS: SUMAtriptan succinate 100 MG TABLET PO (01:14)
[2023-07-10] MEDS: hydrOXYzine HCL 50 MG TABLET PO ×2 (01:14→09:41)
[2023-07-10] MEDS: Acetaminophen 325 MG TABLET 975 MG PO (02:19)
[2023-07-10] MEDS: Levothyroxine Sodium 75 MCG TABLET PO (05:21)
[2023-07-10] MEDS: Omeprazole 40 MG CAPSULE.DR PO (05:21)
[2023-07-10 06:00] VITALS: BP 119/72; PULSE 86; RESP 16; TEMP 36.8
[2023-07-10] MEDS: OLANZapine 7.5 MG TABLET 15 MG PO (08:15)
[2023-07-10] MEDS: Topiramate 100 MG TABLET PO (08:15)
[2023-07-10] MEDS: FLUoxetine HCl 20 MG CAPSULE 40 MG PO (08:15)
[2023-07-10] MEDS: Magnesium Oxide 400 MG TABLET PO (08:16)
[2023-07-10] MEDS: Multivitamin TABLET 1 TAB PO (08:16)
[2023-07-10] MEDS: metFORMIN HCl 500 MG TABLET PO (08:16)
[2023-07-10] MEDS: Folic Acid 1 MG TABLET PO (08:16)
[2023-07-10] MEDS: Celecoxib 200 MG CAPSULE PO (08:16)
[2023-07-10] MEDS: Fluticasone Propionate Nasal 16 GM SPRAY 1 SPRAY NOSTRIL-B (08:16)
[2023-07-10] MEDS: Thiamine HCL 100 MG TABLET PO (08:16)
[2023-07-10 08:38] LABS: Glucose, Whole Blood 116 mg/dL (60-115)
--- NOTE | 2023-07-10 08:58 | PC.NURSE ---
pt declined xray. Pt was educated on risks and benefits and reports, i'm fine, it's not broken. It's just a waste
[2023-07-10] MEDS: clonazePAM 0.5 MG TABLET PO (09:41)
--- NOTE | 2023-07-10 19:54 | P.DS_ITS ---
DS: Providers Provider Date of Service: 07/10/23 Date of admission: 07/01/23 01:20 Date of discharge: 07/10/23 Primary care physician: Unknown Physician Admitting clinician: Cynthia Dill Attending physician on admission: Temo Shetty Consults: 07/01/23 01:30 Consult to Hospitalist Routine Comment: Consulting Provider: Hospitalist Reason For Exam: Direct admission 07/05/23 11:47 Consult to Hospitalist Routine Comment: Consulting Provider: Hospitalist Reason For Exam: A fall 30 minutes ago, possible back of her head Attending physician on discharge: Temo Shetty Discharging clinician: Cynthia Dill DS: Diagnosis Discharge Diagnosis (1) PTSD (post-traumatic stress disorder): Status: Acute (2) Bipolar disorder: Status: Acute DS: Medications Discharge Medications Home Medications: Home Medications Medication Instructions Recorded Confirmed albuterol sulfate 90 mcg/actuation 2 puff inhalation Q6H PRN wheezing 07/01/23 07/01/23 aerosol inhaler (Ventolin HFA) atorvastatin 10 mg tablet 10 mg PO DAILY 07/01/23 07/01/23 ferrous gluconate 324 mg (37.5 mg 324 mg PO Q OTHER DAY 07/01/23 07/01/23 iron) tablet fluoxetine 40 mg capsule 40 mg PO DAILY 07/01/23 07/01/23 fluticasone propionate 50 1 spray intranasal DAILY 07/01/23 07/01/23 mcg/actuation nasal spray,suspension hydroxyzine HCl 50 mg tablet 50 mg PO TID PRN Anxiety 07/01/23 07/01/23 hydroxyzine pamoate 100 mg capsule 100 mg PO BEDTIME PRN Anxiety 07/01/23 07/01/23 levothyroxine 75 mcg tablet 75 mcg PO DAILY 07/01/23 07/01/23 magnesium oxide 400 mg PO BID 07/01/23 07/01/23 nicotine (polacrilex) 2 mg buccal 2 mg buccal Q2H PRN Nicotine 07/01/23 07/01/23 lozenge Cravings nicotine 21 mg/24 hr daily 1 patch transdermal DAILY 07/01/23 07/01/23 transdermal patch olanzapine 10 mg tablet 20 PO QPM 07/01/23 pantoprazole 40 mg tablet,delayed 40 mg PO BID 07/01/23 07/01/23 release prazosin 5 mg capsule 5 mg PO BEDTIME 07/01/23 07/01/23 sumatriptan succinate 100 mg 100 mg PO PRN Migraine Headache 07/01/23 tablet (Imitrex) trazodone 100 mg tablet 300 PO BEDTIME 07/01/23 ubrogepant 100 mg tablet (Ubrelvy) mg 07/01/23 Previous Rx's Medication Instructions Recorded clonazepam 0.5 mg tablet 0.5 mg PO TID PRN Anxiety #0 tabs 07/09/23 folic acid 1 mg tablet 1 mg PO DAILY #0 tabs 07/09/23 lamotrigine 25 mg tablet 25 mg PO BEDTIME #15 tabs 07/09/23 metformin 500 mg tablet 500 mg PO DAILY #0 tabs 07/09/23 multivitamin (Daily-Nishant tablet) 1 tab PO DAILY #0 tabs 07/09/23 olanzapine 15 mg tablet (Zyprexa) 15 mg PO DAILY #14 tabs 07/09/23 thiamine mononitrate (vit B1) 100 100 mg PO DAILY #0 tabs 07/09/23 mg tablet topiramate 100 mg tablet 100 mg PO BID #0 tabs 07/09/23 Mental Status Exam Mental Status Exam Patient Appearance: Appropriate Patient Orientation: Person, Place, Time and Situation Level of Consciousness: Alert Patient Behavior: Talkative and Good Eye Contact Mood Description: Labile Affect Description: Labile Patient Cognition Impaired: No Ability to Follow Directions: Good Speech Pattern: Spontaneous Speech Memory Description: Intact Hallucinations: None Perceptual Disturbances: Depersonalization and Derealization Thought Process: Distracted Thought Content: positive for Perseveration Depressive Symptoms: Thoughts of /Suicide (denies) Judgement: Fair Data Data Completed and Pending Completed studies during hospitalization [Text1]: 07/03/23 07/04/23 07/04/23 22:17 10:13 22:30 Creatinine Estim Creat Clear Calc Estimated GFR POC Glucose 109 134 H 121 H 07/05/23 07/06/23 07/06/23 22:59 08:12 21:26 Creatinine Estim Creat Clear Calc Estimated GFR POC Glucose 123 H 136 H 109 07/07/23 07/08/23 07/08/23 08:09 08:10 22:14 Creatinine Estim Creat Clear Calc Estimated GFR POC Glucose 124 H 136 H 113 01/07/09/23 07/09/23 06:21 10:10 19:49 Creatinine 1.08 Estim Creat Clear Calc 74.4 Estimated GFR 54 POC Glucose 115 117 H 07/10/23 08:29 Creatinine Estim Creat Clear Calc Estimated GFR POC Glucose 116 H Imaging Diagnostic Imaging Impressions Elbow X-Ray 07/02/23 22:20 IMPRESSION: Unremarkable right hand Unremarkable right knee exam. Unremarkable right elbow exam. Hand X-Ray 07/02/23 22:20 IMPRESSION: Unremarkable right hand Unremarkable right knee exam. Unremarkable right elbow exam. Knee X-Ray 07/02/23 22:20 IMPRESSION: Unremarkable right hand Unremarkable right knee exam. Unremarkable right elbow exam. Cervical Spine CT 07/02/23 22:36 IMPRESSION: 1. No acute intracranial abnormality. 2. Within the limitations of motion artifact, no evidence of acute fracture or traumatic malalignment of the cervical spine. Head CT 07/02/23 22:36 IMPRESSION: 1. No acute intracranial abnormality. 2. Within the limitations of motion artifact, no evidence of acute fracture or traumatic malalignment of the cervical spine. Shoulder X-Ray 07/03/23 09:57 IMPRESSION: No acute bony abnormality. Head CT 07/05/23 19:41 IMPRESSION: No evidence of acute intracranial hemorrhage or edematous territorial infarction. DS: Summary Hospital Course Hospital Course: Admission to adult psychiatry for exacerbation of PTSD and Bipolar disorder. Pt sent in transfer from [facility] with cuts to right wrist with nerve involvement requiring two sutures. Pt reporting labile mood changes and SI. Reports stressors include holidays, conflicts with and filing a harassment order against a neighbor. Pt, when admitted, attempted to wrap a pillow case around her neck in a suicide attempt. She was placed on one to one and worked to gain privileges throughout her admission. She has an invested out patient team who shared tools used in her behavioral plans which were implemented to maintain consistency. Consultation was completed with her out patient medication prescriber and medications were evaluated and adjusted. Pt will return home and to her out patient team. Upon discharge, she was improved and mood was stable. Status at Discharge Functional status at discharge: independent ambulation Overall status at discharge: patient is progressing back to baseline Time Spent with Patient Time attestation: Total time managing care of this patient today ____ minutes. Time spent: Greater than 30 minutes Discharge Plan Discharge Anticipated Discharge Date/Time: 07/10/23 12:00 Patient Disposition: Home, Self-Care Discharge Diagnosis: PTSD Bipolar Disorder Referrals: [facility] Therapy ly Gonzalez [Other] - 07/14/23 2:00 pm [facility] Psychiatry ly Lovely Ochoa [Other] - 07/21/23 3:00 pm [Other] - 07/11/23 10:00 am (IN OFFICE) Discharge Medications: New metformin 500 mg Tablet 500 mg PO DAILY Qty: 0 0RF clonazepam 0.5 mg Tablet 0.5 mg PO TID PRN (Reason: Anxiety) Qty: 0 0RF lamotrigine 25 mg Tablet 25 mg PO BEDTIME Qty: 15 1RF folic acid 1 mg Tablet 1 mg PO DAILY Qty: 0 0RF topiramate 100 mg Tablet 100 mg PO BID Qty: 0 0RF multivitamin [Daily-Nishant] Tablet 1 tab PO DAILY Qty: 0 0RF thiamine mononitrate (vit B1) 100 mg Tablet 100 mg PO DAILY Qty: 0 0RF olanzapine [Zyprexa] 15 mg tablet 15 mg PO DAILY Qty: 14 1RF Continued fluoxetine 40 mg capsule 40 mg PO DAILY hydroxyzine pamoate 100 mg Capsule 100 mg PO BEDTIME PRN (Reason: Anxiety) sumatriptan succinate [Imitrex] 100 mg Tablet 100 mg PO PRN (Reason: Migraine Headache) Rx Instructions: do not exceed 2 doses per 24 hrs olanzapine 10 mg tablet 20 PO QPM hydroxyzine HCl 50 mg tablet 50 mg PO TID PRN (Reason: Anxiety) levothyroxine 75 mcg tablet 75 mcg PO DAILY prazosin 5 mg capsule 5 mg PO BEDTIME trazodone 100 mg tablet 300 PO BEDTIME pantoprazole 40 mg tablet,delayed release (DR/EC) 40 mg PO BID fluticasone propionate 50 mcg/actuation spray,suspension 1 spray intranasal DAILY atorvastatin 10 mg tablet 10 mg PO DAILY nicotine 21 mg/24 hr Patch 24 Hour 1 patch TRANSDERMAL DAILY albuterol sulfate [Ventolin HFA] 90 mcg/actuation HFA aerosol inhaler 2 puff INHALATION Q6H PRN (Reason: wheezing) nicotine (polacrilex) 2 mg Lozenge 2 mg BUCCAL Q2H PRN (Reason: Nicotine Cravings) ferrous gluconate 324 mg (37.5 mg iron) Tablet 324 mg PO Q OTHER DAY Ubrelvy 100 mg Tablet magnesium oxide 400 mg magnesium Tablet 400 mg PO BID Discontinued olanzapine 10 mg tablet 10 PO QAM topiramate 100 mg tablet 100 mg PO DAILY Discharge Orders: Discharge Order (Routine); Ordered 07/10/23 Ordered By: Annita Oneal Diet: Advance to usual diet Activity on Discharge: As tolerated Stand Alone Forms: Patient Portal Discharge page, Community Support Care Plan Goals: Mood and Behavioral Stabilization Health Concerns: Mood and Behavioral Stabilization Plan of Treatment: Attend scheduled appointments Take medications as directed Discharge on a three day notice of intent Assessment: Patient has a safety plan that includes presenting to the closest ER or calling 911 if feeling unsafe. Discharge Date/Time: 07/10/23 11:30
== END 2023-07-10 11:30 | disposition home or self-care (01) | DRG 885 ==
PROVIDERS: Psychiatry & Neurology Psychiatry; Admitting Provider Psychiatry & Neurology Psychiatry; Visit Provider Clinical Nurse Specialist Psychiatric/Mental Health, Adult
DX: F31.9 Bipolar disorder, unspecified (principal); R45.851 Suicidal ideations; Z68.41 Body mass index [BMI] 40.0-44.9, adult; E03.9 Hypothyroidism, unspecified; E78.5 Hyperlipidemia, unspecified; J45.909 Unspecified asthma, uncomplicated; Z91.52 Personal history of nonsuicidal self-harm; E66.9 Obesity, unspecified; E11.9 Type 2 diabetes mellitus without complications; Z71.3 Dietary counseling and surveillance; Z87.891 Personal history of nicotine dependence; Z79.51 Long term (current) use of inhaled steroids; Z79.84 Long term (current) use of oral hypoglycemic drugs; Z79.890 Hormone replacement therapy; Z79.899 Other long term (current) drug therapy
CPT/HCPCS: 36415; 70450; 72125; 73030; 73080; 73130; 73564; 80053; 80061; 82565; 82607; 82746; 82947; 83036; 84443; 85025

== ENCOUNTER → 2023-07-01 01:20 | Outpatient (BNV) | payer MEDICARE, MEDICAID, SELFPAY | PROVIDERS: Admitting Provider Psychiatry & Neurology Psychiatry; Visit Provider Clinical Nurse Specialist Psychiatric/Mental Health, Adult | DX: F31.4 Bipolar disorder, current episode depressed, severe, without psychotic features (principal); F43.11 Post-traumatic stress disorder, acute | CPT/HCPCS: 90792; 99231; 99232; 99238; 99499 ==

== ENCOUNTER → 2023-07-01 01:20 | Outpatient (BNV) | payer MEDICARE, MEDICAID, SELFPAY | PROVIDERS: Admitting Provider Psychiatry & Neurology Psychiatry; Visit Provider Internal Medicine | DX: F43.10 Post-traumatic stress disorder, unspecified (principal); F31.9 Bipolar disorder, unspecified | CPT/HCPCS: 99222; 99499 ==